=== PATIENT | male | born 1955 | race Caucasian/White ===

== ENCOUNTER 2016-12-07 15:52 | Emergency (ER) | payer BC, OTHER ==
[2016-12-07 16:19] VITALS: BP 156/77; PULSE 95; RESP 18; TEMP 97.4
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
--- NOTE | 2016-12-07 17:00 | XR ---
EXAMINATION TYPE: XR knee complete RT DATE OF EXAM: 12/07/2016 4:49 PM CLINICAL HISTORY: Right knee pain and bruising and swelling with laceration injury TECHNIQUE: Three views of the right knee are obtained. COMPARISON: None. FINDINGS: Osseous structures are demineralized. There is no acute fracture/dislocation evident in ri ght knee. There is mild tricompartment joint space loss. Mild spurring patellofemoral compartment is seen. Vascular calcification of the posterior soft tissue is seen. Increased density suprapatellar bu rsa is consistent with moderate to large joint effusion. More focal swelling is seen anterior to the distal quadriceps tendon. IMPRESSION: There is no acute fracture or dislocation in the right knee. Suspect moderate to large s uprapatellar joint effusion. Soft tissue contusion injury anteriorly at level of distal femoral metad iaphysis is noted.
== END 2016-12-07 17:25 | disposition home or self-care (01) ==
LOC: EC 15:52
DX: S80.01XA Contusion of right knee, initial encounter (principal); G89.29 Other chronic pain; Z79.899 Other long term (current) drug therapy; Y00.XXXA Assault by blunt object, initial encounter
CPT/HCPCS: 99284

== ENCOUNTER → 2017-06-18 | Outpatient (CLI) | payer OTHER ==
--- NOTE | 2017-06-18 15:51 | US ---
EXAMINATION TYPE: US kidneys/renal and bladder DATE OF EXAM: 06/18/2017 COMPARISON: NONE CLINICAL HISTORY: R94.4 abnormal kidney functions. EXAM MEASUREMENTS: Right Kidney: 12.2 x 4.0 x 5.3 cm Left Kidney: 7.6 x 3.5 x 3.5 cm Right Kidney: Multiple cystic lesions noted, largest measuring 2.1 x 1.7 x 1.7cm, which is slightly complex with internal echogenicity, enlarged from the prior examination. Left Kidney: Inferior pole obscured by overlying bowel gas, cysts noted, largest measuring 1.2 x 1.2 x 1.4 Bladder: wnl Right jet seen, left not visualized * There is no evidence for hydronephrosis at this point in time. No nephrolithiasis is seen. The urina ry bladder is anechoic. Cortical medullary differentiation is maintained. No renal cortical thinning is seen. IMPRESSION: 1. No evidence of hydronephrosis or nephrolithiasis. 2. Enlarging and complex right midpole cystic lesion for which further characterization with CT renal mass protocol is recommended. Multiple smaller bilateral simple appearing benign renal cysts are pre sent. A Yellow message has been communicated to Gibson Dumont Jr, DO via the [employer] system on 06/18/2017 3:49 PM, Message ID [id number].
== END | disposition home or self-care (01) ==
LOC: RADUSWWP 14:59
PROVIDERS: ATTEND Family Medicine
DX: N28.1 Cyst of kidney, acquired (principal)
CPT/HCPCS: 76770

== ENCOUNTER → 2017-12-17 | Outpatient (CLI) | payer OTHER ==
--- NOTE | 2017-12-17 11:58 | US ---
EXAMINATION TYPE: US kidneys/renal and bladder DATE OF EXAM: 12/17/2017 COMPARISON: Renal ultrasound June 18, 2017. CT abdomen and pelvis February 18, 2013. 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 Pt has significant wt loss in 4 years very thin diffi cult to maintain contact for scan. EXAM MEASUREMENTS: Right Kidney: 11.2 x 3.8 x 4.5 cm Left Kidney: 8.8 x 3.6 x 3.6 cm Post Void Residual Volume: 3.4 mL rt kidney larger than left Right Kidney: 2.3 x 2.3 x 2.0 cm, cyst Left Kidney: 1.2 x 1.0 x 0.9 cyst upper pole, cyst 0.8 x 0.8 x 0.6 cm medial mid pole cyst, small non obstructing calculi Bladder: wnl Bilateral Jets seen: rt only seen Normal Post Void Residual: Yes Bladder is poorly distended and thus suboptimally evaluated. Incidental gallstones in gallbladder are noted on images saved. There is 2.3 cm slightly lobulated otherwise simple appearing cyst upper pole level right kidney redemonstrated. There are few smaller simple appearing cysts in left kidney marke d by technologist. No worrisome new solid or cystic mass is seen in either kidney on images saved. IMPRESSION: Stable bilateral renal simple appearing cysts.
== END | disposition home or self-care (01) ==
LOC: RADUSWWP 10:19
PROVIDERS: ATTEND Urology
DX: D41.01 Neoplasm of uncertain behavior of right kidney (principal)
CPT/HCPCS: 76770

== ENCOUNTER → 2018-12-15 | Outpatient (CLI) | payer OTHER, MEDICARE ==
--- NOTE | 2018-12-15 09:33 | US ---
EXAMINATION TYPE: US kidneys/renal and bladder DATE OF EXAM: 12/15/2018 COMPARISON: US 2018, 2017 CLINICAL HISTORY: D41.01 Rt renal mass. EXAM MEASUREMENTS: Right Kidney: 11.9 x 4.6 x 4.2 cm Left Kidney: 8.9 x 3.4 x 3.2 cm Post Void Residual Volume: 6.0 mL Right Kidney: 2.9 x 2.9 x 2.4 cm upper pole cyst. Left Kidney: Upper pole cyst =1.5 x 1.4 x 1.4 cm, Mid pole cyst = 0.8 x 0.9 x 0.9 cm, Lower pole cyst = 1.4 x 1.2 x 1.1 cm, 0.5 cm echogenic foci mid pole ? calculus. Bladder: wnl Bilateral Jets seen: Right side seen, ? weak left sided jet Normal Post Void Residual: Yes IMPRESSION: 1. Left renal cysts and upper pole right renal cyst are similar to the prior exam. If there is concer n for solid neoplasm correlate with CT scan. 2. Nonobstructing left renal calculus. 3. Atrophic change of the left kidney correlate for chronic medical renal disease.
== END | disposition home or self-care (01) ==
LOC: RADUSWWP 08:43
PROVIDERS: ATTEND Urology
DX: N28.1 Cyst of kidney, acquired (principal); N20.0 Calculus of kidney
CPT/HCPCS: 76770

== ENCOUNTER → 2019-01-21 | Outpatient (CLI) | payer OTHER, MEDICARE ==
--- NOTE | 2019-01-21 08:36 | MR ---
EXAMINATION TYPE: MR shoulder RT wo con DATE OF EXAM: 01/21/2019 COMPARISON: Outside right shoulder x-ray January 12, 2019. HISTORY: Right shoulder pain border pain with difficulty raising overhead for 2 years per patient. TECHNIQUE: Multiplanar, multisequence imaging of the right shoulder is performed without contrast. FINDINGS: Rotator Cuff: There is complete retracted tear of the supraspinatus tendon retracted to level of dist al clavicle coronal image 13. There is complete retracted tear of the infraspinatus tendon with some fibers seen extending to the level of acromioclavicular joint on sagittal images. Subscapularis tendo n is intact axial image 13. Mild to moderate generalized muscular atrophy of supraspinatus and infras pinatus muscle bulk is noted. Acromioclavicular Joint: There is moderate to severe narrowing at the navicular joint. There is spur from inferior margin of acromion coronal image 13. Glenohumeral Joint: There is high riding humeral head. There is severe narrowing superior aspect tho ohumeral joint. There is moderate to large joint effusion extending superiorly. Labrum: The superior labrum is torn as is not visualized. Superior osseous glenoid shows increased T2 hyperintense signal anteriorly. Biceps Tendon: The long head of biceps is in normal location within bicipital groove. Intracapsular p ortion and anchor not well visualized. Bone marrow signal: No focal abnormal marrow signal is appreciated. Other: No additional significant abnormality is appreciated. IMPRESSION: Full-thickness retracted tears of the supraspinatus and infraspinatus tendons with underl blaire instability as there is high riding humeral head. Fairly advanced degenerative changes at glenoh umeral and acromioclavicular joints. Chronic tears suspected as there is underlying muscular atrophy noted.
== END ==
LOC: RADMRIMAIN 07:52
PROVIDERS: ATTEND Orthopaedic Surgery
DX: M75.101 Unspecified rotator cuff tear or rupture of right shoulder, not specified as traumatic (principal); M19.011 Primary osteoarthritis, right shoulder; S46.811A Strain of other muscles, fascia and tendons at shoulder and upper arm level, right arm, initial encounter

== ENCOUNTER → 2020-07-16 | Outpatient (CLI) | payer OTHER, MEDICARE ==
--- NOTE | 2020-07-16 14:42 | XR ---
EXAMINATION TYPE: XR cervical spine comp DATE OF EXAM: 07/16/2020 COMPARISON: None HISTORY: Pain TECHNIQUE: Five-view cervical spine FINDINGS: Foraminal stenosis is present on the left at C5-6. Right foraminal stenosis at C6-7 and min imally at C4-5 is present on the right. There is narrowing of disc height C3-4 through C6-7. This appears greatest at C5-6 and C6-7. Mild ant erior vertebral body spurring is present. Posterior spinal lamellar line is intact IMPRESSION: 1. Foraminal narrowing and degenerative disc changes.
== END | disposition home or self-care (01) ==
LOC: RADXRMAIN 13:03
PROVIDERS: ATTEND Family Medicine
DX: M48.02 Spinal stenosis, cervical region (principal); M47.892 Other spondylosis, cervical region; M54.2 Cervicalgia
CPT/HCPCS: 72050

== ENCOUNTER 2020-12-08 05:16 | Emergency (ER) | payer MEDICARE, OTHER ==
[2020-12-08 05:26] VITALS: RESP 18; TEMP 97.4
[2020-12-08] MEDS ORDERED: HYDROmorphone 0.5 MG/0.5 ML SYRINGE IVP STA (06:12)
--- NOTE | 2020-12-08 06:31 | ED ---
Extremity Problem HPI - General Chief complaint: Extremity Problem,Nontraumatic Stated complaint: Elbow pain Time Seen by Provider: 12/08/20 06:11 Source: patient, family Mode of arrival: ambulatory Limitations: no limitations - History of Present Illness Initial comments: 65-year-old male presented for chief complaint of right elbow pain 2 days. Patient states yesterday morning he woke up with mild right elbow pain. He states he does have some amount of chronic pain secondary to a previous fracture dislocation that occurred many years ago. Patient states that it was repaired. Patient states that today he cannot bend the elbow at all he cannot straighten it. He states it looks swollen and there is pain all over anterior posteriorly as well as leukocytes. Patient denies any recent projects or leaning on the elbow. He states he is retired. Patient denies any fevers chills or general malaise recent surgeries. Patient denies any history of gout. Patient denies experiencing this in the past. He denies any falls or injuries or trauma. Patient upon arrival appears uncomfortable, however no in distress. Afebrile. - Related Data Home Medications Medication Instructions Recorded Confirmed Amitriptyline HCl 25 mg PO HS 10/05/14 12/07/16 Hydrocodone/Acetaminophen 1 tab PO Q6H PRN 10/05/14 12/07/16 [Hydrocodone/Acetaminophen 10-325] Simvastatin 40 mg PO DAILY 10/05/14 12/07/16 Tamsulosin HCl 0.4 mg PO DAILY 10/05/14 12/07/16 Previous Rx's Medication Instructions Recorded HYDROcodone/APAP 7.5-325MG [[place] 1 tab PO Q4H PRN 3 Days #18 tab 12/08/20 7.5-325] Allergies Allergy/AdvReac Type Severity Reaction Status Date / Time No Known Allergies Allergy Verified 12/08/20 05:22 Review of Systems ROS Statement: Those systems with pertinent positive or pertinent negative responses have been documented in the HPI. ROS Other: All systems not noted in ROS Statement are negative. Past Medical History Past Medical History: Hypertension History of Any Multi-Drug Resistant Organisms: None Reported Past Surgical History: Back Surgery, Bowel Resection, Hernia Repair, Orthopedic Surgery Additional Past Surgical History / Comment(s): knee Past Psychological History: No Psychological Hx Reported Smoking Status: Never smoker Past Alcohol Use History: None Reported Past Drug Use History: Marijuana General Exam - General Exam Comments Initial Comments: General: The patient is awake and alert, in no distress, and does not appear acutely ill. Eye: Pupils are equal, round and reactive to light, extra-ocular movements are intact. No nystagmus. There is normal conjunctiva bilaterally. No signs of icterus. Musculoskeletal: On inspection there is swelling of the left elbow, there is some slightl redness, the swelling is diffuse and not localized to the bursa. Patient is unable to flex or extend the elbow and the elbow is stuck in a 90 degree position. Able to extend/flex wrist, make fingers crossed, ok sign, oppose small digit and thumb. Strength 5/5 of digit and wrist refuses to strength test the elbow. Sensation intact proximal and distal to complaint site. Rdaial pulses equal bilaterally 2+. Neurological: A&O x 3. CN II-XII intact grossly, There are no obvious motor or sensory deficits. Coordination appears grossly intact. Speech is normal. Skin: Skin is warm and dry and no rashes or lesions are noted. Psychiatric: Cooperative, appropriate mood & affect, normal judgment. Limitations: no limitations Course Vital Signs 12/08/20 05:22 Temperature 97.4 F L Pulse Rate 54 L Respiratory 18 Rate Blood Pressure 165/91 O2 Sat by Pulse 100 Oximetry Medical Decision Making - Medical Decision Making Imaging (-) for fracture, loose body in joint space, severe arthritis. SMall effusion. NO fevers, no leukocytosis, CRP and ESR are WNL. No redness. Patient joint does not appear infected. Dr. Ahuja consulted. Recommended sling, outpatient f/u. Patient provided norco RX for pain, discussed symptomatic treatment, reviewed opioid safety and safety form. Patient case and imaging reviewed with Dr. Estrella who is agreeable to this care plan. - Lab Data Result diagrams: 12/08/20 06:25 12/08/20 06:25 Lab Results 12/08/20 12/08/20 12/08/20 Range/Units 06:25 06:25 06:32 WBC 6.8 (3.8-10.6) k/uL RBC 3.59 L (4.30-5.90) m/uL Hgb 12.3 L (13.0-17.5) gm/dL Hct 36.6 L (39.0-53.0) % MCV 102.1 H (80.0-100.0) fL MCH 34.3 (25.0-35.0) pg MCHC 33.6 (31.0-37.0) g/dL RDW 12.6 (11.5-15.5) % Plt Count 210 (150-450) k/uL MPV 6.8 Neutrophils % 84 % Lymphocytes % 10 % Monocytes % 5 % Eosinophils % 0 % Basophils % 0 % Neutrophils # 5.7 (1.3-7.7) k/uL Lymphocytes # 0.7 L (1.0-4.8) k/uL Monocytes # 0.3 (0-1.0) k/uL Eosinophils # 0.0 (0-0.7) k/uL Basophils # 0.0 (0-0.2) k/uL Macrocytosis Slight ESR 11 (0-15) mm/hr Sodium 134 L (137-145) mmol/L Potassium 4.1 (3.5-5.1) mmol/L Chloride 105 (98-107) mmol/L Carbon Dioxide 24 (22-30) mmol/L Anion Gap 5 mmol/L BUN 16 (9-20) mg/dL Creatinine 1.23 (0.66-1.25) mg/dL Est GFR (CKD-EPI)AfAm 70 (>60 ml/min/1.73 sqM) Est GFR (CKD-EPI)NonAf 61 (>60 ml/min/1.73 sqM) Glucose 121 H (74-99) mg/dL POC Glucose (mg/dL) 150 H (75-99) mg/dL POC Glu [employer] ID Annabelle Raman Uric Acid 5.9 (3.5-8.5) mg/dL Calcium 8.7 (8.4-10.2) mg/dL Total Bilirubin 0.4 (0.2-1.3) mg/dL AST 30 (17-59) U/L ALT 28 (4-49) U/L Alkaline Phosphatase 77 (38-126) U/L C-Reactive Protein <5.0 (<10.0) mg/L Total Protein 6.6 (6.3-8.2) g/dL Albumin 3.7 (3.5-5.0) g/dL Disposition Clinical Impression: Left elbow pain, Arthritis of left elbow, Loose body in elbow joint Disposition: HOME SELF-CARE Condition: Good Instructions (If sedation given, give patient instructions): Osteoarthritis (ED) Additional Instructions: Please use medication as discussed. Please follow-up with family doctor in the next 2 days. Please return to emergency room if the symptoms increase or worsen or for any other concerns. Prescriptions: HYDROcodone/APAP 7.5-325MG [[place] 7.5-325] 1 tab PO Q4H PRN 3 Days #18 tab PRN Reason: Pain Is patient prescribed a controlled substance at d/c from ED?: No Referrals: Gibson Dumont Jr, [Primary Care Provider] - 1-2 days John Ahuja MD [STAFF PHYSICIAN] - 1-2 days Time of Disposition: 07:35
[2020-12-08 06:33] LABS: Glucose,Whole Blood 150 mg/dL (75-99)
[2020-12-08 06:34] LABS: Basophils % (A) 0 %; Eosinophils % (A) 0 %; HCT 36.6 % (39.0-53.0); HGB 12.3 gm/dL (13.0-17.5); Lymphocytes # (A) 0.7 k/uL (1.0-4.8); Lymphocytes % (A) 10 %; MCH 34.3 pg (25.0-35.0); MCHC 33.6 g/dL (31.0-37.0); MCV 102.1 fL (80.0-100.0); Macrocytosis Slight; Mean Platelet Volume 6.8; Monocytes # (A) 0.3 k/uL (0-1.0); Monocytes % (A) 5 %; Neutrophils # (A) 5.7 k/uL (1.3-7.7); Neutrophils % (A) 84 %; Platelet Count 210 k/uL (150-450); RBC 3.59 m/uL (4.30-5.90); RDW 12.6 % (11.5-15.5); WBC 6.8 k/uL (3.8-10.6)
[2020-12-08 06:47] LABS: ALT 28 U/L (4-49); AST 30 U/L (17-59); African American GFR (CKD) 70 (>60 ml/min/1.73 sqM); Albumin 3.7 g/dL (3.5-5.0); Alkaline Phosphatase 77 U/L (38-126); Anion Gap 5 mmol/L; Blood Urea Nitrogen 16 mg/dL (9-20); C Reactive Protein <5.0 mg/L (<10.0); Calcium 8.7 mg/dL (8.4-10.2); Carbon Dioxide 24 mmol/L (22-30); Chloride 105 mmol/L (98-107); Glucose 121 mg/dL (74-99); Non-African American GFR(CKD) 61 (>60 ml/min/1.73 sqM); Potassium 4.1 mmol/L (3.5-5.1); Sodium 134 mmol/L (137-145); Total Bilirubin 0.4 mg/dL (0.2-1.3); Total Protein 6.6 g/dL (6.3-8.2); Uric Acid 5.9 mg/dL (3.5-8.5)
--- NOTE | 2020-12-08 06:49 | XR ---
EXAM: XR Left Elbow Complete, 3 or More Views CLINICAL HISTORY: ITS.REASON XR Reason: injury TECHNIQUE: Frontal, lateral and oblique views of the left elbow. COMPARISON: No relevant prior studies available. FINDINGS/IMPRESSION: No acute fracture or dislocation. Severe degenerative changes of the elbow joint, including the radiocapitellar and ulnohumeral articulations. There is a loose body within the anterior joint space, measuring 7 mm. Smaller loose bodies will be difficult to exclude. Mild joint effusion. Severe osseous demineralization. If there is continued clinical suspicion for fracture repeat imaging in 7- 10 days recommended.
[2020-12-08 07:10] LABS: Erythrocyte Sedimentation Rate 11 mm/hr (0-15)
[2020-12-08 07:51] VITALS: BP 186/91; PULSE 62
--- NOTE | 2020-12-09 11:17 | CDI ---
Dear Blank Barillas, PAC Please do addendum laterality, discrepancy in laterality right (HPI) versus left (PE AND IMPRESSION). Thank you, Erik Meyer Brush Worker If you have any questions, please contact Chief Technician X Ray at [phone] [facility]
== END 2020-12-08 07:51 | disposition home or self-care (01) ==
LOC: EC 05:16
DX: M19.022 Primary osteoarthritis, left elbow (principal); M24.021 Loose body in right elbow; G89.29 Other chronic pain; I10 Essential (primary) hypertension; M25.422 Effusion, left elbow; Z90.49 Acquired absence of other specified parts of digestive tract; Z79.891 Long term (current) use of opiate analgesic; Z79.899 Other long term (current) drug therapy
CPT/HCPCS: 36415; 80053; 85652; 84550; 85025; 86140; 87040; 73070; J1170; 96374; 99283

== ENCOUNTER → 2020-12-11 | Outpatient (CLI) | payer OTHER, MEDICARE ==
[2020-12-11 15:33] LABS: Basophils # (A) 0.01 X 10*3/uL (0.00-0.10); Basophils % (A) 0.2 %; Eosinophils # (A) 0.01 X 10*3/uL (0.04-0.35); Eosinophils % (A) 0.2 %; HCT 35.6 % (39.6-50.0); HGB 11.4 g/dL (13.0-17.0); Lymphocytes # (A) 0.89 X 10*3/uL (0.90-5.00); Lymphocytes % (A) 15.2 %; MCH 33.5 pg (27.0-32.0); MCV 104.7 fL (80.0-97.0); Mean Platelet Volume 9.6 fL (9.5-12.2); Monocytes # (A) 0.62 X 10*3/uL (0.20-1.00); Monocytes % (A) 10.6 %; Neutrophils % (A) 73.3 %; Platelet Count 256 X 10*3/uL (140-440); RDW 13.4 % (11.5-14.5); WBC 5.86 X 10*3/uL (4.50-10.00)
[2020-12-11 17:31] LABS: Erythrocyte Sedimentation Rate 47 mm/Hr (0-20)
[2020-12-11 18:28] LABS: C Reactive Protein 10.5 mg/dL (0.0-0.8); Uric Acid 5.9 mg/dL (3.7-8.7)
== END | disposition home or self-care (01) ==
LOC: LABWHC1 09:44
PROVIDERS: ATTEND Orthopaedic Surgery
DX: M25.50 Pain in unspecified joint (principal)
CPT/HCPCS: 36415; 84550; 85025; 85652; 86038; 86140; 86431

== ENCOUNTER → 2021-02-07 | Outpatient (CLI) | payer MEDICARE, OTHER ==
--- NOTE | 2021-02-08 08:48 | US ---
EXAMINATION TYPE: US kidneys/renal and bladder DATE OF EXAM: 02/07/2021 COMPARISON: 12/15/2018 CLINICAL HISTORY: 65-year-old male N28.1 Renal Cyst. TECHNIQUE: Multiple sonographic images of the kidneys and bladder are obtained. FINDINGS: EXAM MEASUREMENTS: Right Kidney: 11.7 x 4.4 x 4.1 cm Left Kidney: 8.5 x 3.7 x 4.3 cm Right Kidney: multiple renal cysts, largest noted in the upper pole measuring 2.6 x 2.6 x 2.4cm Left Kidney: smaller than right kidney; multiple renal cysts, largest in the upper pole measuring 1.3 x 1.3 x 1.4cm; parallel echogenic lines noted in the represent arterial wall calcifications. No hydronephrosis on either side. Bladder: Very mild wall thickening. Bilateral Jets seen: no, only right ureteral jet was seen after 3 minute observation Post Void Residual Volume: 2.7 mL Normal Post Void Residual: yes Prostate gland is estimated at 3.7 cm wide. IMPRESSION: 1. No hydronephrosis. 2. Bilateral renal cysts measuring up to 2.6 cm. 3. Asymmetrically smaller left kidney. The left ureteral jet is not visualized. Findings suggest asym metric left renal atrophy and chronic medical renal disease.
== END | disposition home or self-care (01) ==
LOC: RADUSWWP 16:10
PROVIDERS: ATTEND Urology
DX: N28.1 Cyst of kidney, acquired (principal)
CPT/HCPCS: 76770

== ENCOUNTER 2021-06-13 08:57 | Day surgery (SDC) | payer OTHER, MEDICARE ==
[2021-06-10 15:13] VITALS: BMI 15.5
[~2021-06-13 08:57] MED LIST: LACTATED RINGERS 1,000 ML IV SCH
[2021-06-13] MEDS ORDERED: LACTATED RINGERS 1,000 ML IV ONE (09:12)
== END 2021-06-13 10:34 | disposition home or self-care (01) ==
LOC: ORWHC2ENDO 08:57
PROVIDERS: ATTEND Surgery
DX: R10.13 Epigastric pain (principal); Z53.9 Procedure and treatment not carried out, unspecified reason

== ENCOUNTER → 2021-07-18 | Outpatient (CLI) | payer OTHER, MEDICARE ==
--- NOTE | 2021-07-18 18:29 | BD ---
EXAMINATION TYPE: Axial Bone Density DATE OF EXAM: 07/18/2021 COMPARISON: NONE CLINICAL HISTORY: 66-year-old male with anorexia and osteoporosis. Height: 69 Weight: 113.6 FRAX RISK QUESTIONS: Alcohol (3 or more units per day): no Family History (Parent hip fracture): no Glucocorticoids (More than 3mos): no (Ex: prednisone, prednisolone, methylprednisolone, dexamethasone, and hydrocortisone). History of Fracture in Adulthood: yes Secondary Osteoporosis: 1. Type 1 Diabetes: no 2. Hyperthyroidism: no 3. Menopause before 45: n/a 4. Malnutrition: yes 5. Chronic liver disease: no Rheumatoid Arthritis: no Current Tobacco Use: no RISK FACTORS HISTORY OF: Surgery to Spine/Hip(right/left)/Wrist (right/left): lumbar spine When: 2012 Family History of Osteoporosis: no Active: yes Diet low in dairy products/other sources of calcium: no Lost more than 2 inches in height since high school: no MEDICATIONS: blood pressure meds, pain meds Additional History: EXAM MEASUREMENTS: Bone mineral densitometry was performed using the [employer]. Bone mineral density about the R hip (g/cm2): 0.708 Bone mineral density about the L hip (g/cm2): 0.645 T Score values are as follows: -----R Neck: -2.4 -----L Neck: -2.8 -----R Total: -2.2 -----L Total: -2.8 Bone mineral density : baseline Bone mineral density about the L Wrist (g/cm2): 0.517 T Score values are as follows: -----Dist. R+U: -3.7 -----Prox. R+U: -2.9 -----Radius total: -3.5 Bone mineral density : baseline IMPRESSION: Osteoporosis (T Score less than -2.5). There is increased fracture risk and therapy is usually indicated based on age. Re-Screen 1-2 years. NOTE: T-SCORE=SD OF THE YOUNG ADULT MEAN.
== END | disposition home or self-care (01) ==
LOC: RADBDWWP 07:58
PROVIDERS: ATTEND Family Medicine
DX: M81.0 Age-related osteoporosis without current pathological fracture (principal); E46 Unspecified protein-calorie malnutrition
CPT/HCPCS: 77080

== ENCOUNTER → 2022-08-11 | Outpatient (CLI) | payer OTHER, MEDICARE | END | disposition home or self-care (01) | LOC: LABPAT 09:51 | PROVIDERS: ATTEND Orthopaedic Surgery | DX: Z53.9 Procedure and treatment not carried out, unspecified reason (principal) ==

== ENCOUNTER 2022-08-26 08:06 | Day surgery (SDC) | payer OTHER, MEDICARE ==
[2022-08-20 12:26] VITALS: BMI 16.2
--- NOTE | 2022-08-25 08:40 | P.HPOR ---
History of Present Illness H&P Date: 08/25/22 Chief Complaint: Right knee pain The patient's a 67-year-old male who presents with progressive right knee pain despite conservative measures. He's having pain with normal weightbearing activities that limited him. He is also having night symptoms. Review of Systems As per HPI Past Medical History Past Medical History: GERD/Reflux, Hearing Disorder / Deafness, Hyperlipidemia, Hypertension Additional Past Medical History / Comment(s): Hx of hiatal hernia and acid reflux, acid reflux resolved since hiatal hernia repair. "Bowels were twisted and had to have emergency surgery 2012, can't keep any weight on since". Hx "seizure on operating table X1 prior to bowel surgery." Insomnia. Migraines. Ringing in ears. History of Any Multi-Drug Resistant Organisms: None Reported Past Surgical History: Back Surgery, Bowel Resection, Hernia Repair, Joint Replacement Additional Past Surgical History / Comment(s): Left knee replacement with revision, surgery for hiatal hernia. Past Anesthesia/Blood Transfusion Reactions: Previous Problems w/ Anesthesia Additional Past Anesthesia/Blood Transfusion Reaction / Comment(s): "Seizure X1 on the table just before bowel surgery". Past Psychological History: No Psychological Hx Reported Smoking Status: Never smoker Past Alcohol Use History: None Reported Past Drug Use History: Marijuana Additional Drug Use History / Comment(s): Daily Marijuana use. Aware no use 24 hrs prior to procedure. - Past Family History Mother Family Medical History: Cancer, COPD Additional Family Medical History / Comment(s): Emphysema. Father Family Medical History: Cancer Medications and Allergies Home Medications Medication Instructions Recorded Confirmed Type Tamsulosin HCl 0.4 mg PO DAILY 10/05/14 08/20/22 History Amitriptyline HCl 50 mg PO HS 08/20/22 08/20/22 History Aspirin [Adult Low Dose Aspirin EC] 162 mg PO DAILY 08/20/22 08/20/22 History Glucosamine/Chondr Hernandez A Sod [Osteo 1 each PO DAILY 08/20/22 08/20/22 History Bi-Flex Caplet] HYDROcodone/APAP 10-325MG [[place] 2 tab PO QAM 08/20/22 08/20/22 History 10-325] Magnesium (Unknown Dose) 1 tab PO DAILY 08/20/22 History Metoprolol Tartrate 12.5 mg PO QAM 08/20/22 08/20/22 History Multivitamin/Iron/Folic Acid 1 each PO DAILY 08/20/22 08/20/22 History [Centrum Adults Tablet] Potassium Chloride [K-Tab ER] 10 meq PO QAM 08/20/22 08/20/22 History Ubrogepant [Ubrelvy] 100 mg PO DAILY PRN 08/20/22 08/20/22 History polyethylene glycoL 3350 [Miralax] 17 gm PO DAILY 08/20/22 08/20/22 History Allergies Allergy/AdvReac Type Severity Reaction Status Date / Time No Known Allergies Allergy Verified 08/20/22 11:54 Physical Examination - Knee right Appearance: effusion Effusion grade: grade 3 Valgus alignment in stance: 5 degrees Tenderness with palpation: anterior, lateral Pain: with flexion Gait: limping ROM: extension: -5 degrees ROM: flexion: 120 degrees Strength: extension: 5/5 Strength: flexion: 5/5 Meniscal tests: lateral meniscal tests: positive Results The patient is a well-developed well-nourished male proximal and 6 foot tall, 117 pounds of ectomorphic habitus. HEENT exam is nonfocal. Neck is supple. He has painless passive motion of the right hip. Straight leg raise is negative. His distal neurovascular appears intact in the right lower extremity. - Diagnostic results Knee x-ray: image reviewed (3 views of the right knee obtained in the office show severe lateral compartment narrowing along with chondrocalcinosis.) Assessment and Plan Assessment: Right knee severe lateral compartment osteoarthrosis Chondrocalcinosis right knee Plan: I talked to the patient at length regarding his condition and treatment options. At this point he remains quite symptomatic despite conservative measures. After thorough discussion hand to proceed with surgery. We will plan to proceed with right total knee arthroplasty. Risks and benefits were discussed at length in layman's terms. We will institute DVT prophylaxis postoperative. Time with Patient: Less than 30
[~2022-08-26 08:06] MED LIST changes: +ACETAMINOPHEN TAB 500 MG TAB PO PRN; -LACTATED RINGERS 1,000 ML IV SCH; +MELOXICAM 7.5 MG TAB PO PRN; +TRANEXAMIC ACID IN NACL,ISO-OS 1,000 MG in SALINE 1 100ML.BAG IVPB PRN
[2022-08-26] MEDS ORDERED: DEXAMETHASONE SOD PHOSPHATE 4 MG/ML 1 ML VIAL IV ONE (08:41)
[2022-08-26] MEDS ORDERED: LACTATED RINGERS 1,000 ML IV SCH (08:41)
[2022-08-26] MEDS ORDERED: ONDANSETRON 4 MG/2 ML VIAL IVP ONE (08:41)
[2022-08-26] MEDS ORDERED: LIDOCAINE 1% (10MG/ML) FOR IV START INTRADERMA PRN (08:41)
[2022-08-26 09:17] LABS: Prothrombin Time 10.8 sec (9.0-12.0)
[2022-08-26] MEDS ORDERED: fentaNYL (PF) 50 MCG/ML 2 ML AMP ONE (10:08)
[2022-08-26] MEDS ORDERED: PHENYLEPHRINE-0.9% NACL SYG 1,000 MCG/10 ML SYRINGE ONE (10:08)
[2022-08-26] MEDS ORDERED: MIDAZOLAM 2 MG/2 ML VIAL ONE (10:08)
[2022-08-26] MEDS ORDERED: HYDROmorphone (PF) 1 MG/ML ONE (10:08)
[2022-08-26] MEDS ORDERED: KETAMINE 10 MG/ML 20 ML VIAL ONE (10:08)
[2022-08-26] MEDS ORDERED: ePHEDrine 50 MG/ML 1 ML VIAL ONE (10:08)
[2022-08-26] MEDS ORDERED: GLYCOPYRROLATE 0.2 MG/ML 2 ML VIAL ONE (10:08)
[2022-08-26] MEDS ORDERED: LIDOCAINE 2% INJ 20 MG/ML (2 ML VIAL) ONE (10:08)
[2022-08-26] MEDS ORDERED: PROPOFOL 10 MG/ML 20 ML VIAL IV ONE (10:08)
[2022-08-26] MEDS ORDERED: ceFAZolin 1,000 MG in SODIUM CHLORIDE 0.9% 1,000 ML IRRIGATION ONE (10:39)
[2022-08-26] MEDS ORDERED: LACTATED RINGERS 1,000 ML IV ONE ×2 (10:50→13:42)
[2022-08-26] MEDS ORDERED: HYDROcodone/APAP 10-325MG 1 EACH TAB PO PRN (11:48)
[2022-08-26] MEDS ORDERED: HYDROmorphone 1 MG/ML 1 ML SYRINGE IVP PRN (11:48)
[2022-08-26] MEDS ORDERED: NALOXONE 0.4 MG/ML 1 ML VIAL IV PRN (11:48)
[2022-08-26] MEDS ORDERED: HYDROmorphone 0.5 MG/0.5 ML SYRINGE IVP PRN (11:48)
[2022-08-26] MEDS ORDERED: ONDANSETRON 4 MG/2 ML VIAL IVP PRN (11:48)
--- NOTE | 2022-08-26 12:06 | P.OP ---
Date of Procedure: 08/26/22 Preoperative Diagnosis: Right knee severe tricompartmental osteoarthrosis Postoperative Diagnosis: Same Procedure(s) Performed: Right total knee arthroplastycementedcruciate retaining Implants: Depuy Attune size 6 cemented femoral component, size 6 cemented tibial component, 12 mm articular surface, 38 mm cemented patellar component. This was a cruciate retaining implant. Anesthesia: GETA Surgeon: Amrik Hutton Feeder Tender #1: Conner Grady Estimated Blood Loss (ml): 50 Pathology: other (Bone fragments) Condition: stable Disposition: PACU Indications for Procedure: The patient's a 67-year-old male who presents with progressive right knee pain secondary to osteoarthrosis despite conservative measures. A discussion of the risks and benefits of operative intervention versus continued conservative measures was made with the patient. He opted to proceed with surgery. Operative risks to include infection, fracture, development of blood clots, neurovascular injury, possible component loosening/failure and need for subsequent procedures was discussed. Informed consent was obtained. Operative Findings: As below Description of Procedure: The patient was brought to the operating room, and after induction of spinal anesthesia the right lower extremity was prepped and draped in a normal fashion. The tourniquet was inflated to 270 mmHg. A longitudinal incision extending 3 finger breaths above the superior pole of the patella extending to the medial aspect the tibial tubercle was then made. The skin and subcutaneous tissues were divided sharply. Electrocautery was used for hemostasis. A medial parapatellar arthrotomy was then performed. The medial soft tissues to include the superficial and deep portions of the medial collateral ligament as well as the medial hamstring tendons were elevated subperiosteally. The proximal medial tibia osteophytes were carefully removed. The patella was everted. The knee was flexed. A portion of the retropatellar fat pad was excised sharply. The anterior cruciate ligament was sacrificed. A starting hole was made in the distal femur 1 cm anterior to the posterior cruciate origin. An intramedullary femoral guide was gently inserted planning on 5 valgus distal cut with 9 mm distal resection. The cutting block was pinned in place. The distal cut was then made. The posterior referencing sizing guide was utilized. 3 of external rotation was built into the system and verified off the trans- epicondylar axis and the posterior condyles. I felt size 6 was most appropriate. The cutting block was pinned in place. The anterior, posterior, and chamfer cuts were then made. The bone fragments were removed. A sulcus cut was then made with the appropriate guide. The trial size 6 femoral component was then placed and was fully seated. There was good anterior to posterior and medial to lateral fit. The distal peg holes were then drilled. The trial component was then removed. Attention was then paid towards preparing the proximal tibia. An extra medullary guide was utilized in line with the tibial shaft and second metatarsal distally. A 7 posterior slope was planned. I planned on 2 mm resection from the medial compartment. The cutting block was pinned in place. The proximal tibial cut was then made. The bone was removed in one fragment. The remnants of the medial and lateral menisci were excised the capsule junction with electrocautery. The tibia sized most appropriately at size 6. The posterior osteophytes off the distal femur were carefully removed with a curved osteotome. The trial tibial and femoral components were placed along with a 12 millimeters articular surface. I was able to obtain full flexion and extension with good stability with varus and valgus stress. After several flexion and extension cycles, the tibial rotation was marked with electrocautery in line with the medial one third of the tibial tubercle. Attention was then paid towards preparing the patella. A patella reamer was utilized taking this down to 14 mm of bone stock. A good flush cut was made. The patella sized most appropriately at 38 millimeters. The peg holes were then drilled. The trial component was placed. The knee was taken through a range of motion. I had good patellofemoral tracking with no hands technique. The trial components were then removed. The tibia was prepared in the appropriate rotation with appropriate drill and keel punch. The flexion and extension gaps were checked and felt to be symmetric. The bony surfaces were prepared with p ulsatile lavage and dried. The deep tibial component was then cemented in place and was fully seated. Excess cement was removed. The femoral component was cemented in place and was fully seated. Again excess cement was removed. The trial 12 millimeters surface was then inserted in the knee was put in full extension. The patella component was cemented in place. After the cement had sufficiently hardened, the knee was again taken through a range of motion. Again there was good stability in flexion and extension with varus and valgus stress. The trial articular surface was then removed. The final articular surface was placed and was impacted. Care was taken to avoid any soft tissue interposition. Pulsatile lavage was again utilized. The tourniquet was deflated with approximately 60 minutes total tourniquet time. There was minimal drainage therefore a deep drain was not placed. The medial parapatellar arthrotomy was then closed with #2 Ethibond suture. The subcutaneous tissues were reapproximated interrupted 2-0 Vicryl sutures. The skin was reapproximated with 3-0 subarticular strata fix suture. Skin tape and adhesive was applied. A sterile dressing was applied. The patient was then awoken from sedation and transferred to recovery room in good condition. Blood loss was estimated at 50 milliliters. No complications were incurred. Sponge and needle counts were correct at the end the case. Robert ROBISON assisted during the major components this case to include exposure, bone resection, and implantation.
[2022-08-26 12:14] VITALS: TEMP 96.9
[2022-08-26] MEDS: HYDROmorphone 0.5 MG/0.5 ML SYRINGE IVP PRN ×2 (12:39→13:25)
--- NOTE | 2022-08-26 12:49 | XR ---
EXAMINATION TYPE: XR knee limited RT DATE OF EXAM: 08/26/2022 COMPARISON: 12/07/2016 HISTORY: Postop prosthesis placement TECHNIQUE: 2 view right knee FINDINGS: Tibial femoral components have been placed. No acute fracture or dislocation is evident. Po stsurgical changes are within the soft tissues. IMPRESSION: 1. No acute fractures post right knee replacement
[2022-08-26] MEDS ORDERED: LABETALOL 5 MG/ML VIAL MDV IVP ONE (13:40)
[2022-08-26] MEDS ORDERED: LABETALOL SYRINGE 5 MG/ML IVP ONE (16:22)
[2022-08-26 16:41] VITALS: BP 186/84; PULSE 57; RESP 18
[2022-08-26] MEDS ORDERED: TAMSULOSIN 0.4 MG CAP.ER.24H PO SCH (18:30)
== END 2022-08-26 17:01 | disposition home health service (06) ==
LOC: OR 08:06
PROVIDERS: ATTEND Orthopaedic Surgery
DX: M17.11 Unilateral primary osteoarthritis, right knee (principal); E78.5 Hyperlipidemia, unspecified; I10 Essential (primary) hypertension; K21.9 Gastro-esophageal reflux disease without esophagitis; Z79.82 Long term (current) use of aspirin
CPT/HCPCS: 97162; 84132; 85610; 88300; 87070; 73560; 27447; C1713 ×2; C1776; J2250; J1100; J0690 ×2; J2405; J3010; J1170 ×2; J2370; J2704; J2001

== ENCOUNTER → 2023-01-02 | Outpatient (CLI) | payer OTHER, MEDICARE ==
[2023-01-02 22:49] LABS: Basophils # (A) 0.02 X 10*3/uL (0.00-0.10); Basophils % (A) 0.4 %; Eosinophils # (A) 0.08 X 10*3/uL (0.04-0.35); Eosinophils % (A) 1.8 %; HCT 34.2 % (39.6-50.0); HGB 10.5 g/dL (13.0-17.0); Immature Grans, Automated 0.2 %; Lymphocytes # (A) 1.33 X 10*3/uL (0.90-5.00); Lymphocytes % (A) 29.2 %; MCH 29.7 pg (27.0-32.0); MCHC 30.7 g/dL (32.0-37.0); MCV 96.6 fL (80.0-97.0); Mean Platelet Volume 9.8 fL (9.5-12.2); Monocytes # (A) 0.52 X 10*3/uL (0.20-1.00); Monocytes % (A) 11.4 %; NRBC Per 100 WBC 0 /100 WBCS (0.0-0.0); Platelet Count 256 X 10*3/uL (140-440); RBC 3.54 X 10*6/uL (4.40-5.60); WBC 4.56 X 10*3/uL (4.50-10.00)
[2023-01-02 23:19] LABS: Erythrocyte Sedimentation Rate 14 mm/Hr (0-20)
== END | disposition home or self-care (01) ==
LOC: LABWHC1 14:38
PROVIDERS: ATTEND Orthopaedic Surgery
DX: T84.84XA Pain due to internal orthopedic prosthetic devices, implants and grafts, initial encounter (principal); Y82.9 Unspecified medical devices associated with adverse incidents
CPT/HCPCS: 36415; 85025; 85652; 86140

== ENCOUNTER → 2023-02-25 | Outpatient (CLI) | payer OTHER, MEDICARE ==
--- NOTE | 2023-02-25 15:33 | XR ---
EXAMINATION TYPE: XR lumbar spine with bend/flex DATE OF EXAM: 02/25/2023 3:27 PM INDICATION: Patient age:Male; 67 years old; Reason for study: M54.50 LOW BACK PAIN, UNSPECIFIED; PHH. COMPARISON: Lumbar spine radiograph 11/01/2013 TECHNIQUE: Frontal, lateral, standing neutral, standing flexion, standing extension, bilateral obliqu e views of the lumbar spine were obtained. FINDINGS: There are 5 lumbar type vertebral bodies identified. Dextroscoliotic curvature identified w ith apex at L3. Postsurgical changes with right-sided pedicular screws, disc spacers, and jose involvi ng L4-S1. Hardware appears intact with proper alignment. No acute fracture. Mild retrolisthesis of L3 on L4 and L4 on L5. Multilevel degenerative disc disease with disc space narrowing, endplate scleros is, and anterior osteophytosis. Vascular sclerosis. IMPRESSION: 1. No acute process. 2. Postsurgical changes right side changes of the lumbar spine at L4-S1. Hardware appears intact. 3. Moderate multilevel degenerative disc disease.
== END | disposition home or self-care (01) ==
LOC: RADXRMAIN 14:55
PROVIDERS: ATTEND Neurological Surgery
DX: M51.36 Other intervertebral disc degeneration, lumbar region (principal)
CPT/HCPCS: 72114

== ENCOUNTER → 2023-03-11 | Outpatient (CLI) | payer OTHER, MEDICARE ==
--- NOTE | 2023-03-11 17:28 | MR ---
EXAMINATION TYPE: MR lumbar spine wo con DATE OF EXAM: 03/11/2023 COMPARISON: None HISTORY: Low back pain x 3months CONTRAST: 0 mL intravenous Gadavist. TECHNIQUE: Multiplanar, multisequence images of the lumbar spine were acquired. FINDINGS: Cord terminates at the L1 level. Right-sided pedicle screws are present at L4-L5 and S1. T his causes magnetic susceptibility artifact in some limitation. L5-S1: No significant disc bulge or disc herniation. No spinal canal stenosis. No foraminal stenosi s. This level has limitation in evaluation. L4-L5: No significant disc bulge or disc herniation. No spinal canal stenosis. No foraminal stenosi s. This level has limitation on evaluation. L3-L4: Endplate spurring and associated disc material is present. There is narrowing of the disc heig ht. Mild anterior thecal sac flattening is present. No AP spinal canal stenosis. Moderate left and [place] right foraminal stenosis is present. L2-L3: Broad-based disc bulge is present with mild anterior thecal sac compression. Facet hypertrophy has posterior lateral thecal sac compression. No spinal canal stenosis is present. Neural foramen ar e patent. L1-L2: No significant disc bulge or disc herniation. No spinal canal stenosis. No foraminal stenosi s. There may be a hemangioma within the L2 level. T12-L1: No significant disc bulge or disc herniation. No spinal canal stenosis. No foraminal stenos is. Note is made of bilateral renal cysts. IMPRESSION: 1. Broad-based disc bulge L2-3 with mild anterior thecal sac impression. No stenosis. 2. Severe right and moderate left foraminal stenosis L3-4. Mild disc bulge and end plate spur has ant erior thecal sac contact at this level.
--- NOTE | 2023-03-12 08:58 | CT ---
EXAMINATION TYPE: CT lumbar spine wo con DATE OF EXAM: 03/11/2023 4:42 PM COMPARISON: Prior MRI March 11, 2023 and older studies including lumbar spine x-ray February 25, 2023 HISTORY: low back pain. hx of sx. CT DLP: 468.10 mGycm Automated exposure control for dose reduction was used. Unenhanced CT of the lumbar spine was performed. Bone and soft tissue window settings are submitted as well as coronal and sagittal reconstructions. There are 5 lumbar type vertebra redemonstrated. Persistent right-sided interpedicular screws with fu bri plate at L4-S1 levels. Persistent artificial disc material L4-L5 and L5-S1 levels with moderate to advanced disc space narrowing. There is grade 1 retrolisthesis L3 on L4 with moderate to severe na rrowing and spurring and endplate sclerosis. There is mild to moderate spurring and disc space narrow ing at L2-L3 level. Slight grade 1 retrolisthesis L2 on L3 is seen. The vertebral body heights are ma intained. Axial images at T12-L1 level show mild broad disc bulge mildly effacing anterior thecal sac. Patent b ilateral neural foramina. Axial images at L1-L2 level show mild broad disc bulge mildly effaces the anterior thecal sac. Patent bilateral neural foramina. Axial images at L2-L3 level show spondylolisthesis with more moderate broad disc bulge effacing anter ior thecal sac and mild facet arthropathy bilaterally. There is mild effacement of the left posterior lateral thecal sac. There is [id number] right-sided inferior neural foraminal narrowing. Axial images at L3-L4 level show spondylolisthesis with broad-based posterior disc protrusion effacin g the anterior thecal sac and mild/moderate facet arthropathy bilaterally. There is mild to moderate bilateral neural foraminal narrowing seen. Axial images at L4-L5 level show partial posterior decompression changes and scar tissue surrounds sp inal canal. Artifact from right-sided fusion hardware is seen. There is artificial disc material not ed. Scar tissue extends into the bilateral neural foramina with at least moderate right-sided neural foraminal narrowing and mild left-sided neural foraminal narrowing present. Axial images at L5-S1 level show partial posterior decompression changes with scar tissue surrounding spinal canal. Right-sided surgical changes present. Scar tissue extends into the left neural foramin a with indistinct left L5 nerve identified. Right-sided neural foramina is patent. Surgical changes to small bowel loop left posterior abdomen axial image 48. There is simple appearing 2.7 cm thin-walled cyst posteriorly in the right kidney axial image 28. There are additional smaller simple thin-walled cysts bilaterally. There is mild/moderate calcified plaque of the aorta extending into iliac branch vessels. Slight dextroconvex scoliosis centered at L3-L4 level is noted on coronal images IMPRESSION: Postsurgical changes are present. Multilevel spondylolisthesis and degenerative change in the lumbar spine is seen as detailed above
== END | disposition home or self-care (01) ==
LOC: RADCTMAIN 15:48
PROVIDERS: ATTEND Neurological Surgery
DX: M48.062 Spinal stenosis, lumbar region with neurogenic claudication (principal); M51.36 Other intervertebral disc degeneration, lumbar region; M99.73 Connective tissue and disc stenosis of intervertebral foramina of lumbar region; M51.26 Other intervertebral disc displacement, lumbar region
CPT/HCPCS: 72131; 72148

== ENCOUNTER → 2024-07-15 | Outpatient (CLI) | payer MEDICARE ==
--- NOTE | 2024-07-15 12:33 | XR ---
EXAMINATION TYPE: XR hand complete RT DATE OF EXAM: 07/15/2024 COMPARISON: None HISTORY: Fall, pain TECHNIQUE: 3 view right hand FINDINGS: Ring is present on the exam. No acute fracture or dislocation evident. Joint spaces are preserved. Mild soft tissue prominence may be over the proximal interphalangeal joint space of the middle and ring finger. Soft tissue swelling over the dorsum of the hand. Follow up exams can be performed as clinically indicated. IMPRESSION: 1. No acute osseous abnormality right hand. 2. Mild soft tissue swelling [facility], , 07/15/2024 12:31 PM
== END | disposition home or self-care (01) ==
LOC: RADXRMAIN 11:05
PROVIDERS: ATTEND Family Medicine
DX: M79.89 Other specified soft tissue disorders (principal); M79.641 Pain in right hand; W01.10XA Fall on same level from slipping, tripping and stumbling with subsequent striking against unspecified object, initial encounter

== ENCOUNTER → 2024-08-04 | Outpatient (CLI) | payer MEDICARE ==
--- NOTE | 2024-08-04 09:26 | US ---
EXAMINATION TYPE: US venous doppler duplex LE LT DATE OF EXAM: 08/04/2024 9:04 AM COMPARISON: NONE CLINICAL INDICATION: Male, 69 years old with history of R60.0 EDEMA L LEG; left leg edema TECHNIQUE: The lower extremity deep venous system is examined utilizing real time linear array sonog zoran with graded compression, color doppler sonography, and spectral doppler. SIDE PERFORMED: left FINDINGS: VESSELS IMAGED: Common Femoral Vein Deep Femoral Vein Greater Saphenous Vein * Femoral Vein Popliteal Vein Small Saphenous Vein * Proximal Calf Veins (* superficial vessels) Left Leg: no evidence of DVT Grayscale, color doppler, spectral doppler imaging performed of the deep veins of the lower extremiti es. IMPRESSION: 1. No ultrasound evidence for deep venous thrombosis of either lower extremity. [facility], , 08/04/2024 9:24 AM
--- NOTE | 2024-08-04 09:31 | US ---
EXAMINATION TYPE: US abdomen comp/pelvis limited DATE OF EXAM: 08/04/2024 COMPARISON: 02/03/2024. CLINICAL INDICATION: Male, 69 years old with history of R19.09 INTRA AB SWELLING; patient having diff iculty gaining weight. TECHNIQUE: Grayscale color Doppler imaging of the abdomen and pelvis. FINDINGS: EXAM MEASUREMENTS: Liver Length: 15.8 cm Gallbladder Wall: 0.3 cm CBD: 0.5 cm Spleen: 7.5 cm Right Kidney: 11.0 x 4.5 x 4.2 cm Left Kidney: 7.4 x 3.1 x 3.1 cm Pancreas: tail obscured by bowel gas Liver: appears wnl Gallbladder: multiple stones/biliary debris. CBD: wnl Spleen: wnl Right Kidney: anechoic lesions, largest = 2.4 x 2.2 x 2.4cm Left Kidney: appears atrophic. anechoic lesions, largest = 1.3 x 1.5 x 1.5cm Upper IVC: wnl Abd Aorta: calcifications. distal upper limits of normal = 3.0cm Bladder: appears wnl Bilateral Jets Seen no IMPRESSION: 1. No evidence for acute process. 2. Infrarenal abdominal aortic aneurysm measuring up to 3.0 cm. 3. Cholelithiasis/bladder sludge. 4. Simple appearing bilateral renal cysts. [facility], , 08/04/2024 9:29 AM
== END | disposition home or self-care (01) ==
LOC: RADUSWWP 08:18
PROVIDERS: ATTEND Family Medicine
CPT/HCPCS: 76700; 76857

== ENCOUNTER → 2024-09-22 | Day surgery (SDC) | payer MEDICARE ==
[2024-09-20 09:56] VITALS: BMI 14.9
[~2024-09-22] MED LIST changes: -ACETAMINOPHEN TAB 500 MG TAB PO PRN; +LACTATED RINGERS 1,000 ML IV SCH; -MELOXICAM 7.5 MG TAB PO PRN; -TRANEXAMIC ACID IN NACL,ISO-OS 1,000 MG in SALINE 1 100ML.BAG IVPB PRN
== END ==
LOC: ORWHC2ENDO 12:37
PROVIDERS: ATTEND Surgery
DX: R63.4 Abnormal weight loss (principal); Z53.8 Procedure and treatment not carried out for other reasons

== ENCOUNTER → 2025-03-30 | Outpatient (CLI) | payer MEDICARE ==
--- NOTE | 2025-03-30 12:23 | XR ---
EXAMINATION TYPE: XR lumbar spine 2 or 3V DATE OF EXAM: 03/30/2025 11:43 AM COMPARISON: 02/25/2023 CLINICAL INDICATION: Male, 69 years old with history of M54.50 low back pain; PHH, pain TECHNIQUE: XR lumbar spine 2 or 3V - Frontal, lateral and coned in L5-S1 lateral views of the spine. FINDINGS: Fixation hardware in the spine appears intact. No evidence of any acute osseous pathology. No evidence of loss of vertebral body height is seen. There is dextroscoliosis apex L3 alignment of the lumbar vertebral bodies. Scattered disc space narrowing with endplate sclerosis. Multilevel robi nal osteophyte formation throughout the visualized spine. There is facet joint arthropathy throughout the spine. Scattered at least mild neural foraminal stenosis. IMPRESSION: 1. Relatively stable exam, No acute fracture. 2. Severe multilevel disc degeneration. 3. Fixation hardware in the spine appears intact. [facility], , 03/30/2025 12:21 PM
== END | disposition home or self-care (01) ==
LOC: RADXRMAIN 11:26
PROVIDERS: ATTEND Family Medicine
DX: M51.360 Other intervertebral disc degeneration, lumbar region with discogenic back pain only (principal)
CPT/HCPCS: 72100

== ENCOUNTER 2025-04-25 15:37 | Emergency (ER) | payer MEDICARE ==
[2025-04-25 16:15] VITALS: TEMP 98.9
--- NOTE | 2025-04-25 16:52 | ED ---
Chest Pain HPI - General Chief Complaint: Chest Pain Stated Complaint: chest pain Time Seen by Provider: 04/25/25 16:32 Source: patient, RN notes reviewed, old records reviewed Mode of arrival: ambulatory Limitations: no limitations - History of Present Illness Initial Comments: This is a 70-year-old male to the ER for chest pain today. Chest pain woke up in the grass chest pain for 2 days and off but getting worse. No significant diaphoresis mild shortness of breath especially with exertion. History of CAD MD Complaint: chest pain -: days(s) (2) Pain Location: substernal, left chest Pain Radiation: none Severity: moderate Severity scale (1-10): 4 Quality: tightness, heaviness Consistency: constant Improves With: nothing Worsens With: exertion Anginal Symptoms: dyspnea, sense of impending doom Other Symptoms: palpitations Treatments Prior to Arrival: none - Related Data Home Medications Medication Instructions Recorded Confirmed Amitriptyline HCl 100 mg PO HS 08/20/22 04/27/25 HYDROcodone/APAP 10-325MG [[place] 1 tab PO BID 08/20/22 04/27/25 10-325] Megestrol [Megace] 200 mg PO TID 04/27/25 04/27/25 Tamsulosin [Flomax] 0.4 mg PO HS 04/27/25 04/27/25 Previous Rx's Medication Instructions Recorded Aspirin [Adult Low Dose Aspirin EC] 81 mg PO DAILY #30 tab 04/28/25 Atorvastatin [Lipitor] 80 mg PO HS #30 tab 04/28/25 Metoprolol Tartrate [Lopressor] 25 mg PO BID #60 tab 04/28/25 Nitroglycerin Sl Tabs [Nitrostat] 0.4 mg SUBLINGUAL Q5M PRN #100 tab 04/28/25 Pantoprazole [Protonix] 40 mg PO DAILY #30 tab 04/28/25 Ticagrelor [Brilinta] 90 mg PO BID #60 tab 04/28/25 Allergies Allergy/AdvReac Type Severity Reaction Status Date / Time No Known Allergies Allergy Verified 04/27/25 16:01 Review of Systems ROS Statement: Those systems with pertinent positive or pertinent negative responses have been documented in the HPI. ROS Other: All systems not noted in ROS Statement are negative. EKG Findings - EKG Comments: EKG Findings:: EKG is 72 NC 164 QRS 89 QTc 368 - EKG Results: EKG: interpreted by ANALILIA Past Medical History Past Medical History: Hyperlipidemia, Hypertension Additional Past Medical History / Comment(s): History of HTN. Hx. of hiatal hernia. States his bowels were twisted and had to have emergency surgery. States can't keep any weight on. History of Any Multi-Drug Resistant Organisms: None Reported Past Surgical History: Appendectomy, Back Surgery, Bowel Resection, Hernia Re pair, Orthopedic Surgery Additional Past Surgical History / Comment(s): knee replacement, surgery for hiatal hernia.colonoscopy egd Past Anesthesia/Blood Transfusion Reactions: No Reported Reaction Additional Past Anesthesia/Blood Transfusion Reaction / Comment(s): no blood transfusion Past Psychological History: No Psychological Hx Reported Smoking Status: Current every day smoker Past Drug Use History: Marijuana - Past Family History Father Family Medical History: Cancer General Exam Limitations: no limitations General appearance: alert, in no apparent distress Head exam: Present: atraumatic, normocephalic, normal inspection Eye exam: Present: normal appearance, PERRL, EOMI. Absent: scleral icterus, conjunctival injection, periorbital swelling ENT exam: Present: normal exam, mucous membranes moist Neck exam: Present: normal inspection. Absent: tenderness, meningismus, lymphadenopathy Respiratory exam: Present: normal lung sounds bilaterally. Absent: respiratory distress, wheezes, rales, rhonchi, stridor Cardiovascular Exam: Present: regular rate, normal rhythm, normal heart sounds. Absent: systolic murmur, diastolic murmur, rubs, gallop, clicks GI/Abdominal exam: Present: soft, normal bowel sounds. Absent: distended, tenderness, guarding, rebound, rigid Extremities exam: Present: normal inspection, full ROM, normal capillary refill. Absent: tenderness, pedal edema, joint swelling, calf tenderness Back exam: Present: normal inspection Neurological exam: Present: alert, oriented X3, CN II-XII intact Psychiatric exam: Present: normal affect, normal mood Skin exam: Present: warm, dry, intact, normal color. Absent: rash Course Vital Signs 04/25/25 04/25/25 16:12 18:00 Temperature 98.9 F Pulse Rate 90 89 Respiratory 23 18 Rate Blood Pressure 132/78 151/95 O2 Sat by Pulse 99 99 Oximetry - Reevaluation(s) Reevaluation #1: Medical records reviewed Reevaluation #2: Patient's symptoms improved Reevaluation #3: Patient informed of results questions answered Reevaluation #4: Was pt. sent in by a medical professional or institution (ENRIQUETA Myrick, SECURITY SYSTEMS SALES REPRESENTATIVE, urgent care, hospital, or retirement...) When possible be specific @ -no Did you speak to anyone other than the patient for history (EMS, parent, family, police, friend...)? What history was obtained from this source @ -no Did you review nursing and triage notes (agree or disagree)? Why? @ -agree Are old charts reviewed (outside hosp., previous admission, EMS record, old EKG, old radiological studies, urgent care reports/EKG's, retirement records)? Report findings @ -yes Differential Diagnosis (chest pain, altered mental status, abdominal pain women, abdominal pain men, vaginal bleeding, weakness, fever, dyspnea, syncope, headache, dizziness, GI bleed, back pain, seizure, CVA, palpatations, mental health, musculoskeletal)? @ -prior EKG interpreted by me (3pts min.). @ -yes X-rays interpreted by me (1pt min.). @ -yes negative for acute disease CT interpreted by me (1pt min.). @ -no U/S interpreted by me (1pt. min.). @ -no What testing was considered but not performed or refused? (CT, X-rays, U/S, labs)? Why? @ -none What meds were considered but not given or refused? Why? @ -none Did you discuss the management of the patient with other professionals (professionals i.e. ENRIQUETA Myrick, SECURITY SYSTEMS SALES REPRESENTATIVE, lab, RT, psych nurse, social media manager, oracle specialist, teacher, chief media officer, disease case manager rn)? Give summary @ -no Was smoking cessation discussed for >3mins.? @ -no Was critical care preformed (if so, how long)? @ -no Were there social determinants of health that impacted care today? How? (Homelessness, low income, unemployed, alcoholism, drug addiction, transportation, low edu. Level, literacy, decrease access to med. care, intermediate, rehab)? @ -none Was there de-escalation of care discussed even if they declined (Discuss DNR or withdrawal of care, Hospice)? DNR status @ -no What co-morbidities impacted this encounter? (DM, HTN, Smoking, COPD, CAD, Cancer, CVA, ARF, Chemo, Hep., AIDS, mental health diagnosis, sleep apnea, morbid obesity)? @ -none Was patient admitted / discharged? Hospital course, mention meds given and route, prescriptions, significant lab abnormalities, going to OR and other pertinent info. @ - 70 male with history of CAD coming with chest pain today. Patient refusing inpatient hospitalization even with significant history of CAD. Patient will be discharged home testing normal here in the emergency department Discharge Undiagnosed new problem with uncertain prognosis? @ -no Drug Therapy requiring intensive monitoring for toxicity (Heparin, Nitro, Insulin, Cardizem)? @ -no Were any procedures done? @ -no Diagnosis/symptom? @ -Chest pain Acute, or Chronic, or Acute on Chronic? @ -Acute Uncomplicated (without systemic symptoms) or Complicated (systemic symptoms)? @ -Complicated Side effects of treatment? @ -no Exacerbation, Progression, or Severe Exacerbation? @ -exacerbation Poses a threat to life or bodily function? How? (Chest pain, [place], [place], pneumonia, PE, COPD, DKA, ARF, appy, cholecystitis, CVA, Diverticulitis, Homicidal, Suicidal, threat to staff... and all critical care pts) @ -yes with chest pain Reevaluation #5: Differential Chest Pain: Stable Angina, Unstable Angina, STEMI, NSTEMI Aortic Dissection, Pneumothorax, Musculoskeletal, Esophageal Spasm GERD, Cholecystitis, Pancreatitis, Zoster, this is not meant to be an all-inclusive list. Chest Pain MDM - [facility] 70 male with history of CAD coming with chest pain today. Patient refusing inpatient hospitalization even with significant history of CAD. Patient will be discharged home testing normal here in the emergency department Critical Care Time Critical Care Time: Yes Total Critical Care Time: 31 Disposition Clinical Impression: Chest pain, Unstable angina pectoris Disposition: HOME SELF-CARE Condition: Fair Instructions (If sedation given, give patient instructions): Heart Attack (DC), Chest Pain (ED) Is patient prescribed a controlled substance at d/c from ED?: No Referrals: Gibson Dumont Jr, DO [Primary Care Provider] - 1-2 days Time of Disposition: 17:45
[2025-04-25 17:04] LABS: Basophils # (A) 0.02 10*3/uL (0.00-0.10); Basophils % (A) 0.3 %; Eosinophils # (A) 0.03 10*3/uL (0.04-0.35); Eosinophils % (A) 0.5 %; HCT 28.4 % (39.6-50.0); HGB 9.6 g/dL (13.0-17.0); Lymphocytes # (A) 1.08 10*3/uL (0.90-5.00); Lymphocytes % (A) 18.4 %; MCH 33.8 pg (27.0-32.0); MCHC 33.8 g/dL (32.0-37.0); MCV 100.0 fL (80.0-97.0); Monocytes # (A) 0.53 10*3/uL (0.20-1.00); Monocytes % (A) 9.0 %; Neutrophils # (A) 4.18 10*3/uL (1.80-7.70); Neutrophils % (A) 71.5 %; Platelet Count 274 10*3/uL (140-440); RBC 2.84 10*6/uL (4.40-5.60); RDW 16.6 % (11.5-14.5); WBC 5.86 10*3/uL (4.50-10.00)
[2025-04-25 17:17] LABS: ALT 44 U/L (4-49); AST 38 U/L (17-59); African American GFR (CKD) 77 (>60 ml/min/1.73 sqM); Albumin 2.7 g/dL (3.5-5.0); Alkaline Phosphatase 110 U/L (38-126); Anion Gap 5 mmol/L; Blood Urea Nitrogen 19 mg/dL (9-20); Calcium 8.2 mg/dL (8.4-10.2); Carbon Dioxide 25 mmol/L (22-30); Chloride 106 mmol/L (98-107); Glucose 86 mg/dL (74-99); Magnesium 2.3 mg/dL (1.6-2.3); Non-African American GFR(CKD) 67 (>60 ml/min/1.73 sqM); Potassium 4.5 mmol/L (3.5-5.1); Sodium 136 mmol/L (137-145); Total Protein 5.4 g/dL (6.3-8.2)
[2025-04-25 17:18] LABS: INR 1.0 (<1.2); Partial Thromboplastin Time 23.7 sec (22.0-30.0); Prothrombin Time 10.6 sec (10.0-12.5)
--- NOTE | 2025-04-25 17:39 | XR ---
EXAMINATION TYPE: XR chest 2V DATE OF EXAM: 04/25/2025 5:36 PM COMPARISON: Chest radiographs from 10/31/2012 TECHNIQUE: XR chest 2V Frontal and lateral views of the chest. CLINICAL INDICATION:Male, 69 years old with history of Chest Pain; FINDINGS: Lungs/Pleura: There is flattening of the diaphragm with increased lucency of the lungs. No evidence o f pneumothorax, pleural effusion or focal consolidation. Pulmonary vascularity: Unremarkable. Heart/mediastinum: Cardiomediastinal silhouette is unremarkable. Atherosclerotic calcifications are seen in the aorta. Musculoskeletal: No acute osseous pathology. IMPRESSION: 1. No acute cardiopulmonary disease process. 2. COPD changes. [facility], , 04/25/2025 5:37 PM
[2025-04-25] MEDS: ASPIRIN 81 MG PO STA (17:56)
[2025-04-25 18:01] VITALS: BP 151/95; PULSE 89; RESP 18
== END 2025-04-25 18:09 | disposition home or self-care (01) ==
LOC: EC 15:37
DX: I25.110 Atherosclerotic heart disease of native coronary artery with unstable angina pectoris (principal); F17.200 Nicotine dependence, unspecified, uncomplicated
CPT/HCPCS: 36415; 71046; 80053; 83735; 84484; 85025; 85610; 85730; 93005; 99291

== ENCOUNTER 2025-04-27 10:21 | Inpatient (IN) | payer MEDICARE ==
[2025-04-27] MEDS ORDERED: HEPARIN SODIUM 1,000 UN/ML (10ML VL) IV PRN (10:49)
--- NOTE | 2025-04-27 11:07 | ED ---
General Adult HPI - General Chief complaint: Chest Pain Stated complaint: Recheck-Abn labs Time Seen by Provider: 04/27/25 10:33 Source: patient Mode of arrival: ambulatory Limitations: no limitations - History of Present Illness Initial comments: Dictation was produced using [employer] dictation software. please excuse any grammatical, word or spelling errors. Chief Complaint: 69-year-old male who presents to the emergency department from primary care doctor's office for ACS History of Present Illness: Patient 69-year-old male was seen in the emergency department 2 days ago. Patient was diagnosed with NSTEMI however left AGAINST MEDICAL ADVICE. Follow-up with his primary care doctor today and was told to come to the emergency department. Presents with the . Patient pain-free at this time. States that 2 days ago he had exertional chest pain while cutting the grass. There was associated diaphoresis nausea. Patient states for the last 24 hours she has been pain-free. Denies any symptoms whatsoever at the bedside. States that he has not been ambulating very much. The ROS documented in this emergency department record has been reviewed and confirmed by me. Those systems with pertinent positive or negative responses have been documented in the HPI. All other systems are other negative and/or noncontributory. - Related Data Home Medications Medication Instructions Recorded Confirmed Tamsulosin HCl 0.4 mg PO DAILY 10/05/14 09/20/24 Amitriptyline HCl 100 mg PO HS 08/20/22 09/20/24 Aspirin [Adult Low Dose Aspirin EC] 81 mg PO DAILY 08/20/22 09/20/24 Glucosamine/Chondr Hernandez A Sod [Osteo 1 each PO DAILY 08/20/22 09/20/24 Bi-Flex Caplet] HYDROcodone/APAP 10-325MG [[place] 2 tab PO QAM 08/20/22 09/20/24 10-325] Magnesium (Unknown Dose) 1 tab PO DAILY 08/20/22 09/20/24 Multivitamin/Iron/Folic Acid 1 each PO DAILY 08/20/22 09/20/24 [Centrum Adults Tablet] Potassium Chloride [K-Tab ER] 10 meq PO QAM 08/20/22 09/20/24 polyethylene glycoL 3350 [Miralax] 17 gm PO DAILY 08/20/22 09/20/24 Allergies Allergy/AdvReac Type Severity Reaction Status Date / Time No Known Allergies Allergy Verified 09/20/24 09:49 Review of Systems ROS Statement: Those systems with pertinent positive or pertinent negative responses have been documented in the HPI. ROS Other: All systems not noted in ROS Statement are negative. Past Medical History Past Medical History: Hyperlipidemia, Hypertension Additional Past Medical History / Comment(s): History of HTN. Hx. of hiatal hernia. States his bowels were twisted and had to have emergency surgery. States can't keep any weight on. History of Any Multi-Drug Resistant Organisms: None Reported Past Surgical History: Appendectomy, Back Surgery, Bowel Resection, Hernia Repair, Orthopedic Surgery Additional Past Surgical History / Comment(s): knee replacement, surgery for hiatal hernia.colonoscopy egd Past Anesthesia/Blood Transfusion Reactions: No Reported Reaction Additional Past Anesthesia/Blood Transfusion Reaction / Comment(s): no blood transfusion Past Psychological History: No Psychological Hx Reported Smoking Status: Current every day smoker Past Alcohol Use History: None Reported Past Drug Use History: Marijuana - Past Family History Father Family Medical History: Cancer General Exam - General Exam Comments Initial Comments: PHYSICAL EXAM: General Impression: Alert and oriented x3, not in acute distress HEENT: Normocephalic atraumatic, extra-ocular movements intact, pupils equal and reactive to light bilaterally, mucous membranes moist. Cardiovascular: Heart regular rate and rhythm Chest: Able to complete full sentences, no retractions, no tachypnea Abdomen: abdomen soft, non-tender, non-distended, no organomegaly Musculoskeletal: Pulses present and equal in all extremities, no peripheral edema Motor: no focal deficits noted Neurological: CN II-XII grossly intact, no focal motor or sensory deficits noted Skin: Intact with no visualized rashes Psych: Normal affect and mood Limitations: no limitations Course Vital Signs 04/27/25 04/27/25 04/27/25 10:27 11:12 11:59 Temperature 97.9 F Pulse Rate 86 81 83 Respiratory 20 16 18 Rate Blood Pressure 111/72 114/76 105/70 O2 Sat by Pulse 94 L 99 95 Oximetry EKG Findings - EKG Comments: EKG Findings:: My EKG interpretation: Ventricular rate 86, sinus rhythm, VA 174, cures 92, QTc 463. No VA prolongation, no QTC prolongation. Diffuse new T wave inversions in inferior leads and lateral precordial leads. ST elevation in V3. No appreciable ST elevation in any other leads. EKG is consistent with ischemia Medical Decision Making - Medical Decision Making Was pt. sent in by a medical professional or institution (, PA, LEAKAGE TESTER, urgent care, hospital, or long term...) When possible be specific @ -No Did you speak to anyone other than the patient for history (EMS, parent, family, police, friend...)? What history was obtained from this source @ -No Did you review nursing and triage notes (agree or disagree)? Why? @ -I reviewed and agree with nursing and triage notes Were old charts reviewed (outside hosp., previous admission, EMS record, old EKG, old radiological studies, urgent care reports/EKG's, long term records)? Report findings @ -No old charts were reviewed Differential Diagnosis (chest pain, altered mental status, abdominal pain women, abdominal pain men, vaginal bleeding, musculoskeletal, weakness, fever, dyspnea, syncope, headache, dizziness, GI bleed, back pain, seizure, CVA, palpatations, mental health)? @ -Differential Chest Pain: Stable Angina, Unstable Angina, STEMI, NSTEMI Aortic Dissection, Pneumothorax, Musculoskeletal, Esophageal Spasm GERD, Cholecystitis, Pancreatitis, Zoster, this is not meant to be an all-inclusive list. EKG interpreted by me (3pts min.). @ -See above X-rays interpreted by me (1pt min.). @ -Chest x-ray shows right apical focal opacity CT interpreted by me (1pt min.). @ -None done U/S interpreted by me (1pt. min.). @ -None done What testing was considered but not performed or refused? (CT, X-rays, U/S, labs)? Why? @ -None What meds were considered but not given or refused? Why? @ -None Was smoking cessation discussed for >3mins.? @ -No Were there social determinants of health that impacted care today? How? (Home lessness, low income, unemployed, alcoholism, drug addiction, transportation, low edu. Level, literacy, decrease access to med. care, intermediate, rehab)? @ -No Was there de-escalation of care discussed even if they declined (Discuss DNR or withdrawal of care, Hospice)? DNR status @ -No What co-morbidities impacted this encounter? (DM, HTN, Smoking, COPD, CAD, Cancer, CVA, ARF, Chemo, Hep., AIDS, mental health diagnosis, sleep apnea, morbid obesity)? @ -None Was patient admitted / discharged? Hospital course, mention meds given and route, prescriptions, significant lab abnormalities, going to OR and other pertinent info. @ -69-year-old male with ACS. Vital signs stable. Patient reports no symptoms at the bedside. EKG shows ischemia. Laboratory evaluation obtained shows elevated troponin 0.267. Case discussed with cardiology who will evaluate the patient urgently. At this point no indication for Green Energy Marketing Analyst activation given that he does not have ST elevations in 2 contiguous leads. Furthermore he is pain-free. Did you discuss the management of the patient with other professionals (pr ofessionals i.e. , PA, LEAKAGE TESTER, lab, RT, psych nurse, social service technician, joint cleaning machine operator, teacher, property and supply officer, case folder)? Give summary @ -See above, case discussed with hospitalist for admission Was critical care preformed (if so, how long)? @ -Yes, 33 minutes Undiagnosed new problem with uncertain prognosis? @ -No Drug Therapy requiring intensive monitoring for toxicity (Heparin, Nitro, Insulin, Cardizem)? @ -No Were any procedures done? @ -No Diagnosis/symptom? Acute, or Chronic, or Acute on Chronic? Uncomplicated (without systemic symptoms) or Complicated (systemic symptoms)? @ -Acute coronary syndrome Side effects of treatment? @ -No Exacerbation, Progression, or Severe Exacerbation? @ -No Poses a threat to life or bodily function? How? (Chest pain, [place], [place], pneumonia, PE, COPD, DKA, ARF, appy, cholecystitis, CVA, Diverticulitis, Homicidal, Suicidal, threat to staff... and all critical care pts) @ -yes - Lab Data Result diagrams: 04/27/25 11:01 04/27/25 11:01 Lab Results 04/27/25 04/27/25 04/27/25 Range/Units 11:01 11: 11:01 WBC 5.16 (4.50-10.00) 10*3/uL RBC 2.77 L (4.40-5.60) 10*6/uL Hgb 9.5 L (13.0-17.0) g/dL Hct 27.5 L (39.6-50.0) % MCV 99.3 H (80.0-97.0) fL MCH 34.3 H (27.0-32.0) pg MCHC 34.5 (32.0-37.0) g/dL Plt Count 303 (140-440) 10*3/uL MPV 8.4 L (9.5-12.2) fL Immature Gran % (Auto) 0.4 % Neutrophils % 66.8 % Lymphocytes % 21.1 % Monocytes % 10.3 % Eosinophils % 1.0 % Basophils % 0.4 % Immature Gran # 0.02 (0.00-0.04) 10*3/uL Neutrophils # 3.45 (1.80-7.70) 10*3/uL Lymphocytes # 1.09 (0.90-5.00) 10*3/uL Monocytes # 0.53 (0.20-1.00) 10*3/uL Eosinophils # 0.05 (0.04-0.35) 10*3/uL Basophils # 0.02 (0.00-0.10) 10*3/uL PT 10.9 (10.0-12.5) sec INR 1.0 (<1.2) APTT 23.3 (22.0-30.0) sec Sodium 138 (137-145) mmol/L Potassium 4.2 (3.5-5.1) mmol/L Chloride 109 H (98-107) mmol/L Carbon Dioxide 26 (22-30) mmol/L Anion Gap 3 mmol/L BUN 21 H (9-20) mg/dL Creatinine 1.23 (0.66-1.25) mg/dL Est GFR (CKD-EPI)AfAm 68 (>60 ml/min/1.73 sqM) Est GFR (CKD-EPI)NonAf 59 (>60 ml/min/1.73 sqM) Glucose 94 (74-99) mg/dL Calcium 8.0 L (8.4-10.2) mg/dL Total Bilirubin 0.2 (0.2-1.3) mg/dL AST 37 (17-59) U/L ALT 40 (4-49) U/L Alkaline Phosphatase 97 (38-126) U/L Troponin I (0.000-0.034) ng/mL Total Protein 5.5 L (6.3-8.2) g/dL Albumin 2.7 L (3.5-5.0) g/dL 04/27/25 Range/Units 11:01 WBC (4.50-10.00) 10*3/uL RBC (4.40-5.60) 10*6/uL Hgb (13.0-17.0) g/dL Hct (39.6-50.0) % MCV (80.0-97.0) fL MCH (27.0-32.0) pg MCHC (32.0-37.0) g/dL Plt Count (140-440) 10*3/uL MPV (9.5-12.2) fL Immature Gran % (Auto) % Neutrophils % % Lymphocytes % % Monocytes % % Eosinophils % % Basophils % % Immature Gran # (0.00-0.04) 10*3/uL Neutrophils # (1.80-7.70) 10*3/uL Lymphocytes # (0.90-5.00) 10*3/uL Monocytes # (0.20-1.00) 10*3/uL Eosinophils # (0.04-0.35) 10*3/uL Basophils # (0.00-0.10) 10*3/uL PT (10.0-12.5) sec INR (<1.2) APTT (22.0-30.0) sec Sodium (137-145) mmol/L Potassium (3.5-5.1) mmol/L Chloride (98-107) mmol/L Carbon Dioxide (22-30) mmol/L Anion Gap mmol/L BUN (9-20) mg/dL Creatinine (0.66-1.25) mg/dL Est GFR (CKD-EPI)AfAm (>60 ml/min/1.73 sqM) Est GFR (CKD-EPI)NonAf (>60 ml/min/1.73 sqM) Glucose (74-99) mg/dL Calcium (8.4-10.2) mg/dL Total Bilirubin (0.2-1.3) mg/dL AST (17-59) U/L ALT (4-49) U/L Alkaline Phosphatase (38-126) U/L Troponin I 0.267 H* (0.000-0.034) ng/mL Total Protein (6.3-8.2) g/dL Albumin (3.5-5.0) g/dL Disposition Clinical Impression: ACS (acute coronary syndrome) Disposition: ADMITTED IP TO THIS HOSP Condition: Critical Referrals: Gibson Dumont Jr, DO [Primary Care Provider] - 1-2 days Decision Time: 12:23
[2025-04-27] MEDS: HEPARIN SOD,PORK IN 0.45% NACL 25,000 UNIT in 0.45% NACL 1 250ML.BAG IV SCH (11:09)
[2025-04-27] MEDS: HEPARIN SODIUM 1,000 UN/ML (10ML VL) IV ONE (11:09)
[2025-04-27 11:16] LABS: Basophils # (A) 0.02 10*3/uL (0.00-0.10); Basophils % (A) 0.4 %; Eosinophils # (A) 0.05 10*3/uL (0.04-0.35); Eosinophils % (A) 1.0 %; HCT 27.5 % (39.6-50.0); HGB 9.5 g/dL (13.0-17.0); Lymphocytes # (A) 1.09 10*3/uL (0.90-5.00); Lymphocytes % (A) 21.1 %; MCH 34.3 pg (27.0-32.0); MCHC 34.5 g/dL (32.0-37.0); MCV 99.3 fL (80.0-97.0); Monocytes # (A) 0.53 10*3/uL (0.20-1.00); Monocytes % (A) 10.3 %; Neutrophils # (A) 3.45 10*3/uL (1.80-7.70); Neutrophils % (A) 66.8 %; Platelet Count 303 10*3/uL (140-440); RBC 2.77 10*6/uL (4.40-5.60); RDW 16.5 % (11.5-14.5); WBC 5.16 10*3/uL (4.50-10.00)
[2025-04-27 11:28] LABS: INR 1.0 (<1.2); Partial Thromboplastin Time 23.3 sec (22.0-30.0); Prothrombin Time 10.9 sec (10.0-12.5)
--- NOTE | 2025-04-27 11:28 | XR ---
EXAMINATION TYPE: XR chest 2V DATE OF EXAM: 04/27/2025 11:10 AM COMPARISON: Chest radiographs from TECHNIQUE: XR chest 2V Frontal and lateral views of the chest. CLINICAL INDICATION:Male, 69 years old with history of chest pain; FINDINGS: Lungs/Pleura: There is flattening of the diaphragm with increased lucency of the lungs. No evidence o f pneumothorax or pleural effusion. Right apical focal opacity with left upper lobe linear opacities. Left apical pleural thickening. Pulmonary vascularity: Unremarkable. Heart/mediastinum: Cardiomediastinal silhouette is unremarkable. Atherosclerotic calcifications are seen in the aorta. Musculoskeletal: No acute osseous pathology. IMPRESSION: 1. Right apical focal opacity with left upper lobe linear opacities. May represent scarring versus ot her etiologies. Consider further evaluation with CT chest. 2. COPD changes. [facility], , 04/27/2025 11:26 AM
[2025-04-27 11:29] LABS: ALT 40 U/L (4-49); AST 37 U/L (17-59); African American GFR (CKD) 68 (>60 ml/min/1.73 sqM); Albumin 2.7 g/dL (3.5-5.0); Alkaline Phosphatase 97 U/L (38-126); Anion Gap 3 mmol/L; Blood Urea Nitrogen 21 mg/dL (9-20); Calcium 8.0 mg/dL (8.4-10.2); Carbon Dioxide 26 mmol/L (22-30); Chloride 109 mmol/L (98-107); Glucose 94 mg/dL (74-99); Non-African American GFR(CKD) 59 (>60 ml/min/1.73 sqM); Potassium 4.2 mmol/L (3.5-5.1); Sodium 138 mmol/L (137-145); Total Protein 5.5 g/dL (6.3-8.2)
[2025-04-27] MEDS: ASPIRIN 81 MG PO STA (12:03)
[2025-04-27] MEDS ORDERED: NALOXONE 0.4 MG/ML 1 ML VIAL IV PRN (12:19)
[2025-04-27] MEDS: NITROGLYCERIN-D5W PMX 50 MG in DEXTROSE/WATER 1 250ML.BAG IV ONE (13:52)
--- NOTE | 2025-04-27 14:11 | P.CRDCN ---
History of Present Illness Consult date: 04/27/25 Chief complaint: nstemi History of present illness: Patient was seen and examined at the bedside with the resident KIMBERLY, with evolving EKG changes and elevated troponin Hypertension Plan for cardiac catheterization with Dr. Bettencourt Echocardiogram Patient is a 69-year-old male with history of hypertension, hyperlipidemia, osteoarthritis came to the ER after he was sent by his PCP with concerns of ACS. Patient was evaluated in the ER on 04/25/2025 when he presented with sudden onset substernal 10/10 nonradiating pressure-like chest pain while doing house chores. His troponin were 0.059 and EKG showed T wave inversions in lead V5 V6. Patie nt left AGAINST MEDICAL ADVICE because his pain was better. He followed up with his PCP who recommended him to come to the ER for further evaluation with the ongoing concerns for ACS. Patient reports no chest pain since his last ER visit. Reports no shortness of breath. He does have worsening swelling of his legs which he attributes it to osteoarthritis. Patient smokes 4-5 joints of marijuana every day for pain. Denies using alcohol and tobacco. Otherwise patient denies any abdominal pain, lightheadedness, dizziness, acute vision changes, numbness or weakness of her lower extremities. Family history is not significant for CAD or CVA. Labs are positive for troponin 0.267. WBC 5.16, hemoglobin 9.5, sodium 138, potassium 4.2, BUN 21, creatinine 1.23 Chest x-ray shows no acute cardiopulmonary process EKG shows T wave inversions in inferior leads and precordial leads which is new compared to previous EKG. Vital signs show heart rate 80 bpm, respiratory rate 16, blood pressure 115/78, oxygen saturation 99% on room air. Review of systems: Pertinent positives and negatives as discussed in HPI, a complete review of systems was performed and all other systems are negative. Social history: As in HPI Family History: As in HPI Physical examination: Vital signs reviewed General: non toxic, no distress, appears older than stated age Head: atraumatic, normocephalic, symmetric Eyes: EOMI, no lid lag, anicteric sclera, pupils equal round reactive to light ENT: Nose and ears atraumatic Neck: No cervical lymphadenopathy, trachea midline, supple Mouth: no lip lesion, mucus membranes moist Cardiovascular: S1S2 reg, no murmur, positive dorsalis pedis pulse bilateral, no edema Lungs: CTA bilateral, no rhonchi, no rales, no accessory muscle use Abdominal: soft, nontender to palpation, no guarding Ext: muscle strength 5 out of 5 in all 4 extremities grossly, no gross muscle atrophy, no contractures, Psych: Alert, oriented, appropriate affect Assessment: #NSTEMI #Hypertension #BPH #Marijuana use #Osteoarthritis Plan: c/w Aspirin 81 mg once daily, Lipitor 40 mg at bedtime c/w Heparin drip order Echocardiogram order TSH, A1c, lipid panel, magnesium and NT BNP order Nitro drip Cardiac catheterization by Dr. Bettencourt later this afternoon Continue with cardiac telemetry Keep patient n.p.o. Past Medical History Past Medical History: Hyperlipidemia, Hypertension Additional Past Medical History / Comment(s): History of HTN. Hx. of hiatal hernia. States his bowels were twisted and had to have emergency surgery. States can't keep any weight on. History of Any Multi-Drug Resistant Organisms: None Reported Past Surgical History: Appendectomy, Back Surgery, Bowel Resection, Hernia Repair, Orthopedic Surgery Additional Past Surgical History / Comment(s): knee replacement, surgery for hiatal hernia.colonoscopy egd Past Anesthesia/Blood Transfusion Reactions: No Reported Reaction Additional Past Anesthesia/Blood Transfusion Reaction / Comment(s): no blood transfusion Past Psychological History: No Psychological Hx Reported Smoking Status: Current every day smoker Past Alcohol Use History: None Reported Past Drug Use History: Marijuana - Past Family History Father Family Medical History: Cancer Medications and Allergies Home Medications Medication Instructions Recorded Confirmed Type Amitriptyline HCl 100 mg PO HS 08/20/22 04/27/25 History Aspirin [Adult Low Dose Aspirin EC] 162 mg PO DAILY 08/20/22 04/27/25 History HYDROcodone/APAP 10-325MG [[place] 1 tab PO BID 08/20/22 04/27/25 History 10-325] Megestrol [Megace] 200 mg PO TID 04/27/25 04/27/25 History Metoprolol Tartrate [Lopressor] 12.5 mg PO DAILY 04/27/25 04/27/25 History Tamsulosin [Flomax] 0.4 mg PO HS 04/27/25 04/27/25 History hydroCHLOROthiazide [Hydrodiuril] 25 mg PO DAILY 04/27/25 04/27/25 History Allergies Allergy/AdvReac Type Severity Reaction Status Date / Time No Known Allergies Allergy Verified 04/27/25 16:01 Physical Exam Vitals: Vital Signs Temp Pulse Resp BP Pulse Ox 04/27/25 13:24 80 16 115/78 99 04/27/25 11:59 83 18 105/70 95 04/27/25 11:12 81 16 114/76 99 04/27/25 10:27 97.9 F 86 20 111/72 94 L Intake and Output 04/26/25 04/27/25 04/27/25 22:59 06:59 14:59 Other: Weight 50.349 kg Results 04/27/25 11:01 04/27/25 11:01 Cardiac Enzymes 04/27/25 04/27/25 Range/Units 11:01 11:01 AST 37 (17-59) U/L Troponin I 0.267 H* (0.000-0.034) ng/mL Coagulation 04/27/25 Range/Units 11:01 PT 10.9 (10.0-12.5) sec APTT 23.3 (22.0-30.0) sec CBC 04/27/25 Range/Units 11:01 WBC 5.16 (4.50-10.00) 10*3/uL RBC 2.77 L (4.40-5.60) 10*6/uL Hgb 9.5 L (13.0-17.0) g/dL Hct 27.5 L (39.6-50.0) % Plt Count 303 (140-440) 10*3/uL Comprehensive Metabolic Panel 04/27/25 Range/Units 11:01 Sodium 138 (137-145) mmol/L Potassium 4.2 (3.5-5.1) mmol/L Chloride 109 H (98-107) mmol/L Carbon Dioxide 26 (22-30) mmol/L BUN 21 H (9-20) mg/dL Creatinine 1.23 (0.66-1.25) mg/dL Glucose 94 (74-99) mg/dL Calcium 8.0 L (8.4-10.2) mg/dL AST 37 (17-59) U/L ALT 40 (4-49) U/L Alkaline Phosphatase 97 (38-126) U/L Total Protein 5.5 L (6.3-8.2) g/dL Albumin 2.7 L (3.5-5.0) g/dL Current Medications Generic Name Dose Route Start Last Admin Trade Name Freq PRN Reason Stop Dose Admin Aspirin 81 mg 04/28/25 09:00 Aspirin 81 Mg PO DAILY [facility] Atorvastatin Calcium 40 mg 04/27/25 21:00 Atorvastatin 40 Mg Tab PO HS [facility] Heparin Sodium (Porcine) 0 unit 04/27/25 10:49 Heparin Sodium 1,000 Un/Ml (10ml Vl) IV PER PROTOCOL PRN Low PTT Protocol Heparin Sodium/Sodium Chloride 250 mls @ 6.042 mls/hr 04/27/25 11:00 04/27/25 11:09 25,000 unit/ Sodium Chloride IV 12 units/kg/hr .Q24H [facility] 6.042 mls/hr Administration Protocol 12 UNITS/KG/HR Sodium Chloride 1,000 mls @ 75 mls/hr 04/27/25 12:30 Saline 0.9% IV .[id number] [facility] Nitroglycerin/Dextrose 50 mg/ 250 mls @ 1.5 mls/hr 04/27/25 12:33 04/27/25 13:52 IV Solution IV 04/28/25 12:32 5 mcg/min .Q24H ONE 1.5 mls/hr Administration Protocol 5 MCG/MIN Naloxone HCl 0.2 mg 04/27/25 12:19 Naloxone 0.4 Mg/Ml 1 Ml Vial IV Q2M PRN Opioid Reversal Intake and Output 04/26/25 04/27/25 04/27/25 22:59 06:59 14:59 Other: Weight 50.349 kg Patient Weight 04/28/25 06:59 Weight 50.349 kg 04/27/25 11:01 04/27/25 11:01
[2025-04-27] MEDS: SODIUM CHLORIDE 0.9% 1,000 ML IV SCH (14:36)
[2025-04-27] MEDS: METOPROLOL SUCCINATE (ER) 25 MG TAB.ER.24H PO STA (14:36)
[2025-04-27] MEDS ORDERED: ALPRAZolam 0.25 MG TAB PO PRN (14:38)
[2025-04-27] MEDS ORDERED: NITROGLYCERIN SL TABS 0.4 MG TAB SUBLINGUAL PRN ×2 (14:38→20:19)
[2025-04-27] MEDS ORDERED: ALPRAZolam 0.5 MG TAB PO PRN (14:38)
[2025-04-27] MEDS: ASPIRIN 325 MG TAB PO STA (14:41)
[2025-04-27] MEDS: PANTOPRAZOLE 40 MG/10 ML VIAL IVP SCH (14:55)
[2025-04-27] MEDS: ATORVASTATIN 80 MG TAB PO STA (14:55)
[2025-04-27 15:55] LABS: Magnesium 2.5 mg/dL (1.6-2.3)
[2025-04-27 16:05] LABS: NT-Pro-B-Type Natriuretic Pept 13000 pg/mL
[2025-04-27] MEDS: fentaNYL (PF) 50 MCG/1 ML VIAL IVP ONE ×3 (19:09→19:43)
[2025-04-27] MEDS: LIDOCAINE 2% (PF) 20 MG/ML 5 ML VIAL SQ ONE (19:09)
[2025-04-27] MEDS: MIDAZOLAM 2 MG/2 ML VIAL IVP ONE ×2 (19:09→19:44)
[2025-04-27] MEDS: VERAPAMIL 2.5 MG/ML 4 ML VIAL INTRAARTER ONE (19:10)
[2025-04-27] MEDS: HEPARIN SODIUM,PORCINE (1 ML) 2,500 UNIT in SODIUM CHLORIDE 0.9% 250 ML IRRIGATION ONE (19:15)
[2025-04-27] MEDS: SODIUM CHLORIDE 0.9% 1,000 ML IV ONE (19:15)
[2025-04-27] MEDS: HEPARIN SODIUM,PORCINE 10,000 UNIT in SODIUM CHLORIDE 0.9% 1,000 ML IRRIGATION ONE (19:15)
[2025-04-27] MEDS: TICAGRELOR 90 MG TAB PO ONE (19:25)
[2025-04-27] MEDS: HEPARIN SODIUM 1,000 UN/ML (10ML VL) IVP ONE (19:26)
[2025-04-27] MEDS: FUROSEMIDE 10 MG/ML 2 ML VIAL IVP ONE ×2 (19:27→20:13)
[2025-04-27] MEDS: HYDROmorphone 0.5 MG/0.5 ML SYRINGE IVP ONE ×2 (19:51→20:00)
[2025-04-27] MEDS: MORPHINE SULFATE 4 MG/ML SYRINGE IVP ONE (20:04)
[2025-04-27] MEDS ORDERED: MAG HYDROX/AL HYDROX/SIMETH 30 ML CUP PO PRN (20:19)
[2025-04-27] MEDS ORDERED: ATROPINE SULFATE 0.1 MG/ML 10ML SYRINGE IV PRN (20:19)
[2025-04-27] MEDS ORDERED: ZOLPIDEM 5 MG TAB PO PRN (20:19)
[2025-04-27] MEDS ORDERED: RX INFO: IV CONTRAST WAS GIVEN 1 EACH MISC MISCELLANE PRN (20:19)
[2025-04-27] MEDS: IOPAMIDOL-370 100ML BTL INJ ONE (20:24)
--- NOTE | 2025-04-27 20:25 | P.PCN ---
Date of Procedure: 04/27/25 Operative Findings: CARDIAC CATHETERIZATION AND PERCUTANEOUS CORONARY INTERVENTION PERFORMING PHYSICIAN: Edvin Sheth MD, [facility] PROCEDURE PERFORMED: 1. Selective right and left coronary angiogram and left heart catheterization 2. Successful stenting of proximal LAD using 4.0 x 28 mm Xience [id number] with an excellent angiographic results 3. Adjunctive use of IVUS and IFR and shockwave 4. Ultrasound-guided access of the right radial artery INDICATION: Acute non-ST elevation myocardial infarction COMPLICATION: None APPROACH: Right radial artery LEVEL OF SEDATION: Moderate with the sedation time off 67 minutes PROCEDURE DESCRIPTION: After obtaining informed consent the patient was brought to the cardiac Metal Punch Press Operator. The right radial artery was cannulated using micropuncture technique under ultrasound guidance a micropuncture wire passed easily then I placed a 6 [place] 11 cm sheath at the right radial artery. I did selective right and left coronary angiogram using JR4 and JL 3.5 catheters. After that left heart catheterization was performed using the JR4 catheter which crossed the aortic valve. After that I decided to intervene on the LAD. Anticoagulation was initiated using heparin with continuous ACT monitoring. Subsequently I did engage the left main using JL 3.5 guiding catheter. I did wired the LAD using a whisper wire. Balloon angioplasty initially was performed using 1.75 mm score flex balloon and subsequently 2.5 mm NC balloon and then 3.5 mm shockwave balloon giving the heavily calcified artery after IVUS was performed. After that I deployed 4.0 x 28 mm stent which was initially postdilated using 4 mm NC balloon and then 3.5 mm NC balloon after IVUS was performed. Final angiogram showed good angiographic results with EROS-3 flow. After that I decided to do an IFR of the RCA. After zeroing the Dobler wire and equalized in between the Dobler wire and guiding catheter which was a JR4 guiding catheter the RCA was engaged and then wired with IFR came to be 0.94 which is nonflow limiting SELECTIVE CORONARY ANGIOGRAM: The right coronary artery: Large caliber vessel and calcified vessel with intermediate lesion involving the midportion documented to be nonflow-limiting by Doppler wire Left main: Calcified with mild disease only The left circumflex: Large caliber vessel nondominant vessel with no evidence of high-grade stenosis The left anterior descending artery: Large caliber vessel with very eccentric and calcified and ulcerated lesion involving the very proximal portion. The mid LAD has mild to moderate disease only. HEMODYNAMICS: The LVEDP was 28 mmHg with no significant gradient across the aortic valve CONCLUSION: 1. Critical lesion involving the proximal LAD and the lesion is very calcified and eccentric and ulcerated as well. I did perform successful PCI as described above 2. Intermediate disease involving heavily calcified RCA. I did perform IFR came in to be nonflow-limiting 3. Elevated left-sided filling pressure POSTPROCEDURE MANAGEMENT: 1. Dual antiplatelet therapy using aspirin and Brilinta for 12 month 2. Aggressive cholesterol control 3. Follow-up with the patient
[2025-04-27] MEDS: ATORVASTATIN 40 MG TAB PO SCH (21:18)
[2025-04-27] MEDS: ATORVASTATIN 80 MG TAB PO SCH (21:30)
[2025-04-27] MEDS: TICAGRELOR 90 MG TAB PO SCH (21:30)
[2025-04-27] MEDS: METOPROLOL TARTRATE 25 MG TAB PO SCH (21:30)
[2025-04-27] MEDS: SODIUM CHLORIDE 0.9% 1,000 ML in EMPTY BAG 1 BAG IV SCH (21:31)
[2025-04-27 21:58] LABS: Cholesterol 114.00 mg/dL (0.00-200.00); HDL Cholesterol 36.00 mg/dL (40.00-60.00); LDL Cholesterol,Calculated 63.5 mg/dL (0.0-131.0); Triglycerides 72.30 mg/dL (0.00-149.00); VLDL Calculation 14.46 mg/dL (5.00-40.00)
[2025-04-27 23:45] LABS: Glucose,Whole Blood 125 mg/dL (70-110)
[2025-04-28] MEDS ORDERED: HEPARIN SODIUM,PORCINE (1 ML) 2,500 UNIT in SODIUM CHLORIDE 0.9% 250 ML IRRIGATION PRN (07:00)
[2025-04-28] MEDS ORDERED: HEPARIN SODIUM,PORCINE 10,000 UNIT in SODIUM CHLORIDE 0.9% 1,000 ML IRRIGATION PRN (07:00)
[2025-04-28] MEDS: ASPIRIN 81 MG PO SCH ×2 (08:37)
[2025-04-28 08:43] LABS: HCT 29.6 % (39.6-50.0); HGB 10.2 g/dL (13.0-17.0); MCH 33.7 pg (27.0-32.0); MCHC 34.5 g/dL (32.0-37.0); MCV 97.7 fL (80.0-97.0); Platelet Count 321 10*3/uL (140-440); RBC 3.03 10*6/uL (4.40-5.60); RDW 16.1 % (11.5-14.5); WBC 7.50 10*3/uL (4.50-10.00)
[2025-04-28 09:23] LABS: African American GFR (CKD) 73 (>60 ml/min/1.73 sqM); Anion Gap 5 mmol/L; Blood Urea Nitrogen 20 mg/dL (9-20); Calcium 8.0 mg/dL (8.4-10.2); Carbon Dioxide 22 mmol/L (22-30); Chloride 109 mmol/L (98-107); Glucose 93 mg/dL (74-99); Magnesium 2.1 mg/dL (1.6-2.3); Non-African American GFR(CKD) 64 (>60 ml/min/1.73 sqM); Potassium 4.6 mmol/L (3.5-5.1); Sodium 136 mmol/L (137-145)
--- NOTE | 2025-04-28 09:36 | P.HPIM ---
History of Present Illness H&P Date: 04/28/25 Chief Complaint: Chest pain History and Physical and Discharge Summary This is a 69-year-old male returning to the ER with chest pain. 2 days prior on 04/25/2025 patient presented to the ER, with complaints of exertional chest pain while cutting the grass accompanied by diaphoresis, nausea. diagnosed with acute NSTEMI and left AMA. Followed up with his PCP yesterday who advised him to return to the ER for cardiac evaluation and workup. EKG reported sinus rhythm with left anterior fascicular block, anterior septal myocardial [place] of indeterminate age, new T wave inversions in inferior and lateral precordial leads, ST elevation in V3. Troponin 0.267-increased up from 04/25/2025 troponin of 0.059. evaluated by cardiology and taken for cardiac catheterization. Cardiac catheterization reported critical lesion involving the proximal LAD and the lesion was very calcified, eccentric and ulcerated as well, status post successful PCI. Intermediate disease involving heavily calcified RCA performed IFR , came in to be nonflow limiting, and elevated left-sided filling pressure. Postprocedure recommendations of dual antiplatelet therapy using aspirin and Brilinta for 12 months, aggressive cholesterol control. Echo taken, report pending .telemetry sinus rhythm to sinus tach with highest heart rate up into the 130s earlier this a.m. denies chest pain, palpitations or shortness of breath, maintaining O2 sats in the high 90s to 100% on room air. Afebrile, normal WBC.VSS. hemoglobin 10.2, platelets 321. Electrolytes within normal limits, potassium 4.6, magnesium 2.1. Renal function stable with creatinine decreased to 1.16, postprocedure. Blood sugars controlled, hemoglobin A1c 5. Patient is eager for discharge. Review of Systems ROS Statement: Those systems with pertinent positive or pertinent negative responses have been documented in the HPI. ROS Other: All systems not noted in ROS Statement are negative. Past Medical History Past Medical History: Hyperlipidemia, Hypertension Additional Past Medical History / Comment(s): History of HTN. Hx. of hiatal hernia. States his bowels were twisted and had to have emergency surgery. States can't keep any weight on. History of Any Multi-Drug Resistant Organisms: None Reported Past Surgical History: Appendectomy, Back Surgery, Bowel Resection, Hernia Repair, Orthopedic Surgery Additional Past Surgical History / Comment(s): knee replacement, surgery for hiatal hernia.colonoscopy egd Past Anesthesia/Blood Transfusion Reactions: No Reported Reaction Additional Past Anesthesia/Blood Transfusion Reaction / Comment(s): no blood transfusion Past Psychological History: No Psychological Hx Reported Smoking Status: Current every day smoker Past Alcohol Use History: None Reported Past Drug Use History: Marijuana - Past Family History Father Family Medical History: Cancer Medications and Allergies Home Medications Medication Instructions Recorded Confirmed Type Amitriptyline HCl 100 mg PO HS 08/20/22 04/27/25 History HYDROcodone/APAP 10-325MG [[place] 1 tab PO BID 08/20/22 04/27/25 History 10-325] Megestrol [Megace] 200 mg PO TID 04/27/25 04/27/25 History Tamsulosin [Flomax] 0.4 mg PO HS 04/27/25 04/27/25 History Aspirin [Adult Low Dose Aspirin EC] 81 mg PO DAILY #30 tab 04/28/25 Rx Atorvastatin [Lipitor] 80 mg PO HS #30 tab 04/28/25 Rx Metoprolol Tartrate [Lopressor] 25 mg PO BID #60 tab 04/28/25 Rx Nitroglycerin Sl Tabs [Nitrostat] 0.4 mg SUBLINGUAL Q5M PRN #100 tab 04/28/25 Rx Pantoprazole [Protonix] 40 mg PO DAILY #30 tab 04/28/25 Rx Ticagrelor [Brilinta] 90 mg PO BID #60 tab 04/28/25 Rx Allergies Allergy/AdvReac Type Severity Reaction Status Date / Time No Known Allergies Allergy Verified 04/27/25 16:01 Physical Exam Vitals: Vital Signs Temp Pulse Resp BP Pulse Ox 04/27/25 13:24 80 16 115/78 99 04/27/25 11:59 83 18 105/70 95 04/27/25 11:12 81 16 114/76 99 04/27/25 10:27 97.9 F 86 20 111/72 94 L Intake and Output 04/26/25 04/27/25 04/27/25 22:59 06:59 14:59 Other: Weight 50.349 kg PHYSICAL EXAM: VITAL SIGNS: [Reviewed] GENERAL: Alert and oriented x 3, sitting up in bed, eating breakfast, no acute distress HEENT: Normocephalic, atraumatic ,conjunctivae normal. eyes normal. mmm. NECK: Supple, no JVD. CARDIOVASCULAR: S1, S2 regular. No murmur RESPIRATION: Unlabored, equal air entry, clear to auscultation. ABDOMEN: Soft, nontender. No guarding. no masses palpable. No hepatosplenomegaly.Bowel sounds heard. LEGS: No edema. no swelling NERVOUS SYSTEM: Cranial N 2-12 grossly normal. No focal deficits. Strength and sensation grossly intact. Skin: Warm and dry, no rash Results CBC & Chem 7: 04/28/25 08:25 04/28/25 08:25 Labs: Abnormal Lab Results - Last 24 Hours (Table) 04/27/25 04/27/25 04/27/25 Range/Units 11:01 11:01 11:01 RBC 2.77 L (4.40-5.60) 10*6/uL Hgb 9.5 L (13.0-17.0) g/dL Hct 27.5 L (39.6-50.0) % MCV 99.3 H (80.0-97.0) fL MCH 34.3 H (27.0-32.0) pg MPV 8.4 L (9.5-12.2) fL Chloride 109 H (98-107) mmol/L BUN 21 H (9-20) mg/dL Calcium 8.0 L (8.4-10.2) mg/dL Troponin I 0.267 H* (0.000-0.034) ng/mL Total Protein 5.5 L (6.3-8.2) g/dL Albumin 2.7 L (3.5-5.0) g/dL Assessment and Plan Assessment: Acute NSTEMI, status post cardiac catheterization.Cardiac catheterization reported critical lesion involving the proximal LAD and the lesion was very calcified, eccentric and ulcerated as well, status post successful PCI. Intermediate disease involving heavily calcified RCA performed IFR , came in to be nonflow limiting, and elevated left-sided filling pressure. Postprocedure recommendations of dual antiplatelet therapy using aspirin and Brilinta for 12 months, aggressive cholesterol control. Echo taken, report pending . Hypertension Osteoarthritis BPH Marijuana use Plan: Continue on current medication regimen ,monitoring and symptomatic treatment. Echo results pending. dual antiplatelet therapy, aggressive cholesterol control. Patient will be discharged home today in a stable condition with guarded prognosis pending final DC recommendations and clearance per cardiology. Discharge Medication List Amitriptyline HCl 100 mg PO HS 08/20/22 [History] HYDROcodone/APAP 10-325MG [[place] 10-325] 1 tab PO BID 08/20/22 [History] Megestrol [Megace] 200 mg PO TID 04/27/25 [History] Tamsulosin [Flomax] 0.4 mg PO HS 04/27/25 [History] Aspirin [Adult Low Dose Aspirin EC] 81 mg PO DAILY #30 tab 04/28/25 [Rx] Atorvastatin [Lipitor] 80 mg PO HS #30 tab 04/28/25 [Rx] Metoprolol Tartrate [Lopressor] 25 mg PO BID #60 tab 04/28/25 [Rx] Nitroglycerin Sl Tabs [Nitrostat] 0.4 mg SUBLINGUAL Q5M PRN #100 tab 04/28/25 [Rx] Pantoprazole [Protonix] 40 mg PO DAILY #30 tab 04/28/25 [Rx] Ticagrelor [Brilinta] 90 mg PO BID #60 tab 04/28/25 [Rx] The impression and plan of care has been dictated as directed. : I performed a history and examination of this patient, discussed the same with the dictator. I agree with the dictator's note ,documented as a scribe. Any additional findings or plans will be noted.
[2025-04-28 11:50] VITALS: BP 116/73; PULSE 109; RESP 18; TEMP 97.9
--- NOTE | 2025-04-28 11:51 | CA ---
Transthoracic Echo Report Name: Dusty Koehler Age: 69 Gender: M : 1955 Exam Date: 04/27/2025 13:57 Exam Location: [facility] Ht (in): 72 Wt (lb): 111 Ordering Physician: Iglesia Saravia MD ([id number]) Attending/Referring Phys: Communications Tower Technician Katiuska Cuello RDCS Procedure CPT: Indications: nstemi Cardiac Hx: Technical Quality: Good Contrast 1: Definity Total Dose (mL): 2 Contrast 2: Total Dose (mL): MEASUREMENTS (Male / Female) Normal Values 2D ECHO LV Diastolic Diameter PLAX 5.0 cm 4.2 - 5.9 / 3.9 - 5.3 cm LV Systolic Diameter PLAX 4.4 cm IVS Diastolic Thickness 1.1 cm 0.6 - 1.0 / 0.6 - 0.9 cm LVPW Diastolic Thickness 1.0 cm 0.6 - 1.0 / 0.6 - 0.9 cm LV Relative Wall Thickness 0.4 RV Internal Dim ED PLAX 2.9 cm LA Systolic Diameter LX 3.7 cm 3.0 - 4.0 / 2.7 - 3.8 cm LV Diastolic Volume MOD BP 110.6 cm??? 67 - 155 / 56 - 104 cm??? LV Systolic Volume MOD BP 61.8 cm??? 22 - 58 / 19 - 49 cm??? LV Ejection Fraction MOD BP 44.1 % >= 55 % LV Cardiac Index MOD BP 2881.3 cm???/min???m??? LV Diastolic Volume MOD 4C 99.4 cm??? LV Systolic Volume MOD 4C 58.5 cm??? LV Ejection Fraction MOD 4C 41.2 % LV Cardiac Index MOD 4C 2418.0 cm???/min???m??? LV Diastolic Length 4C 8.6 cm LV Systolic Length 4C 8.3 cm LV Diastolic Volume MOD 2C 120.8 cm??? LV Systolic Volume MOD 2C 65.1 cm??? LV Ejection Fraction MOD 2C 46.1 % LV Cardiac Index MOD 2C 3287.4 cm???/min???m??? LV Diastolic Length 2C 8.4 cm LV Systolic Length 2C 8.0 cm M-MODE Aortic Root Diameter MM 3.3 cm LA Systolic Diameter MM 2.1 cm LA Ao Ratio MM 0.6 DOPPLER AV Peak Velocity 102.5 cm/s AV Peak Gradient 4.2 mmHg Mitral E Point Velocity 76.6 cm/s Mitral A Point Velocity 70.1 cm/s Mitral E to A Ratio 1.1 MV Deceleration Time 133.0 ms TR Peak Velocity 263.0 cm/s TR Peak Gradient 27.7 mmHg Right Ventricular Systolic Press 37.8 mmHg FINDINGS Left Ventricle Left ventricular ejection fraction is estimated at 35-40 %. Left ventricular cavity size normal. Mildly increased left ventricular systolic volume. Moderately decreased left ventricular ejection fraction. Apical seprum, apical anterior , apical lateral and inferior hypokinesis to akinesis Right Ventricle Normal right ventricular size. Mild pulmonary hypertension. Right Atrium Normal right atrial size. No spontaneous contrast in the right atrium. Left Atrium Normal left atrial size. No left atrial thrombus or mass present. Mitral Valve Structurally normal mitral valve. No evidence for mitral valve prolapse. No mitral stenosis. Trace to mild mitral regurgitation. Aortic Valve Trileaflet aortic valve. Thickened aortic valve without stenosis. Tricuspid Valve Structurally normal tricuspid valve. Trace to mild tricuspid regurgitation. Pulmonic Valve Pulmonic valve not well visualized. Trace pulmonic regurgitation. Pericardium No pericardial effusion. Aorta Normal size aortic root and proximal ascending aorta. CONCLUSIONS Reason non-Q wave myocardial infarction Severe LV dysfunction ejection fraction 35%. Only the basal one third of the LV contracts. Large [id number] aneurysm. LV ballooning noted Previewed by: Dr. Amanuel Logan MD (Electronically Signed) Final Date: 28 April 2025 11:50
[2025-04-28] MEDS: DAPAGLIFLOZIN PROPANEDIOL 10 MG TABLET PO SCH (13:04)
[2025-04-28] MEDS: SACUBITRIL/VALSARTAN 24 MG-26 MG TABLET PO SCH (13:04)
[2025-04-28] MEDS: SPIRONOLACTONE 25 MG TAB PO SCH (13:04)
--- NOTE | 2025-04-28 18:38 | P.PN ---
Subjective Progress Note Date: 04/28/25 Patient is a 69-year-old male with history of hypertension, hyperlipidemia, osteoarthritis came to the ER after he was sent by his PCP with concerns of ACS. Patient was evaluated in the ER on 04/25/2025 when he presented with sudden onset substernal 10/10 nonradiating pressure-like chest pain while doing house chores. His troponin were 0.059 and EKG showed T wave inversions in lead V5 V6. Patient left AGAINST MEDICAL ADVICE because his pain was better. He followed up with his PCP who recommended him to come to the ER for further evaluation with the ongoing concerns for ACS. Patient reports no chest pain since his last ER visit. Reports no shortness of breath. He does have worsening swelling of his legs which he attributes it to osteoarthritis. Patient smokes 4-5 joints of marijuana every day for pain. Denies using alcohol and tobacco. Otherwise patient denies any abdominal pain, lightheadedness, dizziness, acute vision changes, numbness or weakness of her lower extremities. Family history is not significant for CAD or CVA. Labs are positive for troponin 0.267. WBC 5.16, hemoglobin 9.5, sodium 138, potassium 4.2, BUN 21, creatinine 1.23 Chest x-ray shows no acute cardiopulmonary process EKG shows T wave inversions in inferior leads and precordial leads which is new compared to previous EKG. Vital signs show heart rate 80 bpm, respiratory rate 16, blood pressure 115/78, oxygen saturation 99% on room air. Progress note 04/28/2025 Seen and examined at bedside this a.m., right radial access appears to be intact, normal right radial pulse Very eager to go home denies any chest pain chest pressure shortness of breath LVEF shows 35 to 40% EF Physical examination: Vital signs reviewed General: non toxic, no distress, appears older than stated age Head: atraumatic, normocephalic, symmetric Eyes: EOMI, no lid lag, anicteric sclera, pupils equal round reactive to light ENT: Nose and ears atraumatic Neck: No cervical lymphadenopathy, trachea midline, supple Mouth: no lip lesion, mucus membranes moist Cardiovascular: S1S2 reg, no murmur, positive dorsalis pedis pulse bilateral, no edema Lungs: CTA bilateral, no rhonchi, no rales, no accessory muscle use Abdominal: soft, nontender to palpation, no guarding Ext: muscle strength 5 out of 5 in all 4 extremities grossly, no gross muscle atrophy, no contractures, Psych: Alert, oriented, appropriate affect Assessment: #NSTEMI status post PCI to proximal LAD # Ischemic cardiomyopathy with EF of 35% apical hypokinesia #Hypertension #BPH #Marijuana use #Osteoarthritis Plan: Dual antiplatelet therapy, statin Entresto half tablet 24/26 mg twice daily, Aldactone 12.5 mg daily, Farxiga 10 mg daily Metoprolol 25 mg twice daily Okay to be discharged from cardiovascular standpoint Recommend outpatient follow-up with cardiology Dr. Bettencourt. Objective - Vital Signs Vital signs: Vital Signs Temp 97.9 F 04/28/25 11:45 Pulse 109 H 04/28/25 11:45 Resp 18 04/28/25 11:45 BP 116/73 04/28/25 11:45 Pulse Ox 99 04/28/25 11:45 FiO2 Intake & Output 04/27/25 04/28/25 04/28/25 18:59 06:59 18:59 Intake Total 200 364 Output Total 750 325 Balance -550 39 Weight 50.349 kg 49 kg Intake: IV 200 10 Invasive Line 1 10 Oral 354 Output: Urine 750 325 Other: Voiding Method Urinal Urinal # Voids 3 - Labs CBC & Chem 7: 04/28/25 08:25 04/28/25 08:25 Labs: Abnormal Lab Results - Last 24 Hours (Table) 04/27/25 04/27/25 04/28/25 Range/Units 11:01 23:44 08:25 RBC (4.40-5.60) 10*6/uL Hgb (13.0-17.0) g/dL Hct (39.6-50.0) % MCV (80.0-97.0) fL MCH (27.0-32.0) pg MPV (9.5-12.2) fL Sodium 136 L (137-145) mmol/L Chloride 109 H (98-107) mmol/L POC Glucose (mg/dL) 125 H (70-110) mg/dL Calcium 8.0 L (8.4-10.2) mg/dL HDL Cholesterol 36.00 L (40.00-60.00) mg/dL 04/28/25 Range/Units 08:25 RBC 3.03 L (4.40-5.60) 10*6/uL Hgb 10.2 L (13.0-17.0) g/dL Hct 29.6 L (39.6-50.0) % MCV 97.7 H (80.0-97.0) fL MCH 33.7 H (27.0-32.0) pg MPV 8.3 L (9.5-12.2) fL Sodium (137-145) mmol/L Chloride (98-107) mmol/L POC Glucose (mg/dL) (70-110) mg/dL Calcium (8.4-10.2) mg/dL HDL Cholesterol (40.00-60.00) mg/dL
[2025-04-28] MEDS ORDERED: AMITRIPTYLINE HCL 50 MG TAB PO SCH (21:00)
[2025-04-28] MEDS ORDERED: TAMSULOSIN 0.4 MG CAP.ER.24H PO SCH (21:00)
[2025-04-28] MEDS ORDERED: HYDROcodone/APAP 10-325MG 1 EACH TAB PO SCH (21:00)
== END 2025-04-28 14:40 | disposition home or self-care (01) | DRG 324 ==
LOC: EC 10:21 → 3SCARD 12:21
PROVIDERS: ADMIT Family Medicine; ATTEND Family Medicine
PROC: 02F03ZZ Fragmentation in Coronary Artery, One Artery, Percutaneous Approach (ICD-10-PCS; 2025-04-27)
PROC: B240ZZ3 Ultrasonography of Single Coronary Artery, Intravascular (ICD-10-PCS; 2025-04-27)
PROC: 4A023N7 Measurement of Cardiac Sampling and Pressure, Left Heart, Percutaneous Approach (ICD-10-PCS; 2025-04-27)
PROC: B2111ZZ Fluoroscopy of Multiple Coronary Arteries using Low Osmolar Contrast (ICD-10-PCS; 2025-04-27)
PROC: B2151ZZ Fluoroscopy of Left Heart using Low Osmolar Contrast (ICD-10-PCS; 2025-04-27)
PROC: 027034Z Dilation of Coronary Artery, One Artery with Drug-eluting Intraluminal Device, Percutaneous Approach (ICD-10-PCS; principal; 2025-04-27 15:20)
DX: I21.4 Non-ST elevation (NSTEMI) myocardial infarction (principal); E78.5 Hyperlipidemia, unspecified; I10 Essential (primary) hypertension; I44.4 Left anterior fascicular block; I25.10 Atherosclerotic heart disease of native coronary artery without angina pectoris; M19.90 Unspecified osteoarthritis, unspecified site; I25.5 Ischemic cardiomyopathy; F17.200 Nicotine dependence, unspecified, uncomplicated; N40.0 Benign prostatic hyperplasia without lower urinary tract symptoms; Z79.899 Other long term (current) drug therapy; Z79.82 Long term (current) use of aspirin; Z79.02 Long term (current) use of antithrombotics/antiplatelets
CPT/HCPCS: 36415; 71046; 80048; 80053; 80061; 83036; 83735; 83880; 84443; 84484; 85025; 85027; 85610; 85730; 93005; 93306; 96365; 96366; 96368; 99291

== ENCOUNTER → 2025-05-02 | Outpatient (CLI) | payer MEDICARE ==
--- NOTE | 2025-05-03 15:34 | MR ---
INDICATION: Patient age:Male; 69 years old; Reason for study: M54.50, M53.9; [facility]. COMPARISONS: Lumbar spine radiographs 03/30/2025, 02/25/2023, MRI lumbar spine 03/11/2023, CT lumbar spi ne 03/11/2023. TECHNIQUE: Multi planar, multi sequence imaging was performed utilizing: T1-weighted, T2-weighted, a nd turbo inversion recovery imaging of the lumbar spine. The patient was not given contrast. FINDINGS: Limited examination due to poor [id number] ratio. Postsurgical changes from right-side d pedicular screws and jose involving L4-S1 with laminectomy changes. Hardware creates susceptibility artifact which limits evaluation. The lumbar vertebral bodies do have preserved heights. Grade 1 retr olisthesis of L2 on L3. TType I Modic changes involving the endplates around the T2 L3 disc. Multilev el disc desiccation is present. The conus medullaris and the distal spinal cord do appear unremarkab le with regards to their signal intensity and morphology. T12-L1:No significant disc pathology is identified. The spinal canal and neural foramen are patent. L1-L2: No significant disc pathology is identified. The spinal canal and neural foramen are patent. L2-L3: Posterior osteophyte with mild effacement of anterior thecal sac. No significant spinal canal stenosis. Mild bilateral neuroforaminal stenosis. L3-L4: Posterior osteophyte with no significant spinal canal stenosis. Bilateral facet arthropathy. M ild right and moderate left neural foraminal stenosis. L4-L5: Post surgical changes without evidence for disc herniation. No spinal canal stenosis. The lef t neural foramen is patent. Bilateral facet arthropathy. Mild to moderate right and moderate left shilpa ral foraminal stenosis. L5-S1: Post surgical changes without evidence for disc herniation. No spinal canal stenosis. The left neural foramen is patent. Right-sided facet arthropathy resulting in moderate right neural foraminal stenosis. Other significant findings: Bilateral T2 hyperintense thin-walled renal cysts. Largest on the right m easuring up to 3.0 cm. No follow-up recommended.. IMPRESSION: Overall stable exam from prior MR 03/11/2023. Postsurgical changes from right-sided posterior fusion f rom L4 through S1. Multilevel disc degeneration with associated osteoarthritic changes. No evidence f or significant spinal canal stenosis. Varying degrees of neural foraminal stenosis as described above . [facility], , 05/03/2025 3:31 PM
== END | disposition home or self-care (01) ==
LOC: RADMRIMAIN 20:25
PROVIDERS: ATTEND Family Medicine
DX: M48.061 Spinal stenosis, lumbar region without neurogenic claudication (principal); M51.360 Other intervertebral disc degeneration, lumbar region with discogenic back pain only; M53.86 Other specified dorsopathies, lumbar region; M41.86 Other forms of scoliosis, lumbar region; Z98.890 Other specified postprocedural states; Z98.1 Arthrodesis status
CPT/HCPCS: 72148